=== PATIENT | female | born 1965 | race Caucasian/White ===

== ENCOUNTER 2017-01-15 09:16 | Observation (INO) | payer OTHER ==
[~2017-01-15] VITALS: Ht 165.1 cm; Wt 67.1 kg
[~2017-01-15 09:16] MED LIST: ADVAIR DISKU 11 UNIT INH; ALBUTEROL 3 ML3 ML INH; ALBUTEROL0.09 MG/A1 INH; AZITHROMYCIN250 M1 PO; BACTRIM DS 8001 TAB PO; BACTRIM DS TAB1 EACH PO; BENADRYL ALLERG25 MG PO; CEFTIN500 MG PO; CLEOCIN HCL300 MG PO; COZAAR50 M1 PO; CRESTOR20 M2 PO; DOXYCYCLINE MO100 MG PO; FLEXERIL10 MG PO; HYDROCODONE/ACE1 TA1 PO; IOPHEN C-NR 10473 ML PO; KEFLEX500 MG PO; LANTUS SOL100 UNIT/1 SC; METFORMIN HCL500 M3 PO; MOBIC 15MG15 MG PO; NAPROSYN 500 M500 MG PO; NOVOLOG FL100 UNIT/1 SC; OXYCONTIN20 MG PO; PERCOCET 325 MG1 TA2 PO; PREDNISONE 20MG20 MG PO; PREDNISONE10 MG PO; ROBITUSSIN W/CO10 ML PO; TESSALON PERLE100 MG PO; TRAMADOL50 MG PO; ZITHROMAX Z PA250 MG PO; ZITHROMAX Z-PA250 M1 PO; ZITHROMAX Z-PA250 MG PO
--- NOTE | 2017-01-15 09:25 | NUR ---
SEEN BY DR. MULLER YEST. FOR ABCESS ON LEFT UPPER LEG. TOLD TO COME TO ED IF FEVER. FEVER LAST NIGHT 100.3. TOOK TYLENOL 650 MG 0700 THIS AM
--- NOTE | 2017-01-15 09:43 | NUR ---
PT STATES THAT SHE IS SCHEDULED FOR SURGERY SATURDAY WITH DR SORTO FOR ABCESS TO HER BUTTOCKS. PT WAS TOLD TO COME TO ER IF IT BECAME WORSE. PT COMPLAINS THAT SHE HAD FEVER LAST PM AND THAT ABCESS IS GETTING LARGER.
--- NOTE | 2017-01-15 10:11 | ED SKIN/ALLERGY COMPLAINT ---
History of Present Illness General Chief Complaint: Skin Rash/ Abcess Stated Complaint: SENT BY DR MULLER FOR EVAL OF ABCESS Source: patient, old records Exam Limitations: no limitations Vital Signs & Intake/Output Vital Signs & Intake/Output Vital Signs Date Time Temp Pulse Resp B/P B/P Pulse O2 O2 Flow FiO2 Mean Ox Delivery Rate 01/15 1638 98.5 110 18 131/72 97 Room Air Room Air 01/15 1256 98.0 111 20 142/79 98 Room Air 01/15 1142 98.9 109 22 139/78 94 Room Air 01/15 1041 99.8 94 20 157/88 96 Room Air 01/15 0921 98.8 121 20 129/75 96 Allergies Coded Allergies: moxifloxacin (Severe, HIVES, ITCHING, VOMITING, SOB 11/28/15) amoxicillin (Intermediate, RASH/HIVES 11/28/15) tetanus and diphtheria toxoids (TETANUS & DIPHTHERIA TOXOIDS) (Intermediate, SWELLING, REDNESS AT SITE 11/28/15) Triage Note: SEEN BY DR. MULLER YEST. FOR ABCESS ON LEFT UPPER LEG. TOLD TO COME TO ED IF FEVER. FEVER LAST NIGHT 100.3. TOOK TYLENOL 650 MG 0700 THIS AM Triage Nurses Notes Reviewed? yes HPI: This is a 51-year-old female with past medical history significant for insulin- dependent diabetes, asthma, hypercholesterolemia, who comes in for a chief complaint of abscess. Patient has had recurrent abscesses in her groin, chest, and thigh. She states that she saw Thao Leon MD yesterday in office for evaluation of a left inguinal abscess. Supposedly, she is scheduled for OR I&D on Saturday. Pt states that she was counseled by Dr. Thao Leon MD, that if she became febrile or acutely worsened then she should come to the ED. Patient states that she's had this abscess for the past 5-6 months but it was only 1 cm in size and was actively draining. However the past 3 days, she noted explosive growth, erythema, and tenderness in that same area. Currently she states she has difficulty ambulating. Normal bladder and bowel function. She was prescribed Bactrim by Thao Leon MD, took last dose yesterday. She does endorse a fever of 100.3 yesterday. She took a Tylenol 650 mg around 7 AM this morning. Given the fever, nausea and difficulty ambulating she came to ED. (ANGELIA STUBBS,[facility]) Reconcile Medications Albuterol Sulfate 2.5 MG/3 ML (0.083 %) VIAL.NEB 1 Vial INH/SAÚL Q4P PRN SHORTNESS OF BREATH (Reported) Albuterol Sulfate (Proair Hfa) 90 MCG HFA.AER.AD 2 PUF INH Q4-6 PRN PRN SHORTNESS OF BREATH (Reported) Clindamycin HCl (Cleocin HCl) 300 MG CAPSULE 1 CAP PO TID ABSCESS Fluticasone-Salmeterol (Advair 100-50 Diskus) 100 MCG-50 MCG/DOSE BLST.W.DEV 1 PUF INH BID ASTHMA (Reported) Insulin Aspart, Recombinant (Novolog Flexpen) (Unknown Strength) INSULN.PEN ( Unknown Dose) SC SEE SLIDING SCALE DIABETES (Reported) Insulin Glargine,Hum.rec.anlog (Lantus Solostar) 100 UNIT/ML (3 ML) INSULN.PEN 60 UNIT SC QPM DIABETES (Reported) Losartan Potassium (Cozaar) 50 MG TABLET 1 TAB PO DAILY BP (Reported) Metformin HCl 500 MG TABLET 1 TAB PO BID DIABETES (Reported) Oxycodone HCl/Acetaminophen (Percocet 5-325 MG Tablet) 5 MG-325 MG TABLET 1-2 TAB PO Q4-6H PRN PAIN Rosuvastatin Calcium (Crestor) 20 MG TABLET 1 TAB PO DAILY CHOLESTEROL ( Reported) Onset: Gradual Duration: week(s): (2) Timing: recent history Severity: moderate, severe Location: LEFT INNER THIGH Associated Symptoms: edema (RADHA STUBBS,CHAR) Past History Travel History Traveled to [place] past 21 day No Medical History Any Pertinent Medical History? see below for history Neurological: NONE EENT: NONE Cardiovascular: hypertension, hyperlipidemia Respiratory: asthma, pneumonia, bronchitis Gastrointestinal: small external and internal hemorrhoids Hepatic: NONE Renal: NONE Musculoskeletal: NONE Psychiatric: NONE Endocrine: DM BENIGN THYROID TUMOR Blood Disorders: NONE Cancer(s): NONE PIN PUSHER/Reproductive: PARTIAL HYSTRECTOMY History of MRSA: No History of VRE: No History of CDIFF: No Surgical History Surgical History: PARTIAL HYSTERECTOMY thyroidectomy Psychosocial History Who do you live with Family Services at Home None What is your primary language Kuwaiti Tobacco Use: Never used ETOH Use: denies use Illicit Drug Use: denies illicit drug use Family History Family History, If Any: MOTHER FH: hypertension Hx Contributory? No (MARLA GALAN MD) Review of Systems Review of Systems Constitutional: Reports: chills, fever, malaise. Denies: diaphoresis. EENTM: Reports: no symptoms. Respiratory: Denies: cough, short of breath. Cardiovascular: Reports: palpitations. Denies: chest pain. GI: Reports: no symptoms. Genitourinary: Reports: no symptoms. Musculoskeletal: Reports: muscle stiffness. Skin: Reports: erythema, lesions, lumps, rash. (MARLA GALAN MD) Review of Systems Neurological/Psychological: Reports: anxiety. Hematologic/Endocrine: Denies: bruising, bleeding. Immunologic/Allergic: Denies: splenectomy. (CHAR GARCIA MD) Physical Exam Physical Exam General Appearance: well developed/nourished, anxious, mild distress Head: atraumatic, normal appearance Eyes: Bilateral: normal appearance, PERRL, EOMI. Ears, Nose, Throat: normal pharynx, normal ENT inspection Neck: normal inspection, supple Respiratory: chest non-tender, no respiratory distress, quiet respiration, lungs clear Cardiovascular: tachycardia Gastrointestinal: normal bowel sounds, soft, non-tender Extremities: Pt has erythematous, 6-7cm hard lesion exetnding into her inguinal region to her left buttock. No crepitus noted. Skin: see above Skin Problem Location: lower extremities Skin Problem Character: abcess Diagram Chest, Abdomen, Back: 1) abscess (MARLA GALAN MD) Physical Exam Peripheral Pulses: 2+ radial (R), 2+ radial (L) Neurologic/Psych: no motor/sensory deficits, awake, alert, oriented x 3 (CHAR GARCIA MD) ED Sepsis Exam Date of Focused Sepsis Exam: 01/15/17 Time of Focused Sepsis Exam: 1139 Sepsis Cardiac Exam: Regular Rate/Rhythm Sepsis Resp Exam: CTA Sepsis Cap Refill Exam: <2 Sec Sepsis Peripheral Pulse Exam: Normal Sepsis Peripheral Pulse Location: Radial Sepsis Skin Color Exam: Normal for Ethnicity Skin Temp/Moisture Exam: Warm/Dry (CHAR GARCIA MD) Progress Differential Diagnosis: abscess/cellulitis Plan of Care: Orders Procedure Date/time Status Nothing by Mouth 01/15 L Complete Nothing by Mouth 01/15 D Active Add-on Test (ER Only) 01/15 1138 Active EKG 01/15 1000 Active BLOOD CULTURE 01/16 956 Active PARTIAL THROMBOPLASTIN TIME 01/16 956 Complete PROTHROMBIN TIME 01/16 956 Complete COMPREHENSIVE METABOLIC PANEL 01/16 956 Complete CBC WITHOUT DIFFERENTIAL 01/16 956 Complete TYPE & SCREEN (NOT X-MATCH) 01/16 956 Complete Current Medications Sig/Mikki Start time Last Medication Dose Stop Time Status Admin Insulin Human Regular 0 Q6 01/15 1200 AC (NovoLIN R) Acetaminophen 650 MG Q4P PRN 01/15 1015 AC (Tylenol) Laboratory Tests 01/15/17 1008: Anion Gap 9, Estimated GFR > 60, BUN/Creatinine Ratio 20.0, Glucose 316 H, Calcium 9.3, Total Bilirubin 0.7, AST 13 L, ALT 33, Alkaline Phosphatase 99, Total Protein 6.6, Albumin 3.6, Globulin 3.0, Albumin/Globulin Ratio 1.2, PT 12.2, INR 1.16, APTT 31, CBC w Diff NO MAN DIFF REQ, RBC 4.97, MCV 89.5, MCH 29.5, RDW 13.6, MPV 8.9, Gran % 79.2 H, Lymphocytes % 13.9 L, Monocytes % 5.1, Eosinophils % 1.5, Basophils % 0.3, Absolute Granulocytes 11.9 H, Absolute Lymphocytes 2.1, Absolute Monocytes 0.8 H, Absolute Eosinophils 0.2, Absolute Basophils 0.1, PUBS MCHC 33.0 Microbiology 01/15 1020 BLOOD: Blood Culture - RECD 01/15 1008 BLOOD: Blood Culture - RECD MESSAGE LEFT FOR DR LEON IN OR. 11:38 AM SURGICAL PA PAGED. 01/15/2017 12:09:10 PM Patient to go to the OR from the ED this afternoon. (RADHA STUBBS,CHAR) Comments: 10:14 AM called OR and left message for Dr. Lauren regarding status of patient. 11:50 WBC 15 and Surgical PA seeing patient for evaluation 12:06 Pt scheduled for OR this evenight around 5PM. May or may not admit patient after (ANGELIA STUBBS,MARLA) Diagnostic Imaging: Viewed by Me: CT Scan. Discussed w/RAD: CT Scan. Radiology Impression: PATIENT: RAHEEL SAINI PRESENT AGE: 51 PATIENT ACCOUNT NO: [id number] : 66 LOCATION: [facility] ORDERING PHYSICIAN: ELY SWENSON SERVICE DATE: 01/15/174611 EXAM TYPE : CAT - CT PELVIS WO IV CONTRAST EXAMINATION: CT PELVIS WITHOUT CONTRAST CLINICAL INFORMATION: Abscess in the left posteromedial side. Evaluate for tract infection in the left side of the pelvis and the buttocks. COMPARISON: CT dated 10/18/2011 TECHNIQUE: Helical scanning was performed with submillimeter collimation through the pelvis. Sagittal and coronal multiplanar 2-D reconstructions were obtained. DLP: 602.7 mGy-cm FINDINGS: Within the subcutaneous fat at the inferior margin of the left gluteal region deep to the inferior gluteal fold, there is a 2.9 x 4.3 x 3.3 cm complex fluid collection with marked surrounding inflammation in the subcutaneous fat and adjacent skin thickening. This is most compatible with an abscess. The subcutaneous edema extends deep to the depth of the superficial fascia and the inferior pubic ramus. No gas or deep fluid collections are identified. No significant fluid along the fascial planes. More mild subcutaneous edema is present along the right inferior gluteal cleft. No subcutaneous collections. Intrapelvic soft tissues are unremarkable. Intrapelvic portions of the: Small bowel are normal in caliber. No bowel wall thickening. No free fluid. Calcific atherosclerosis is present within the vasculature. No adenopathy. Osseous structures are unremarkable aside from mild degenerative arthritis in the hips and SI joints. No acute osseous abnormalities. IMPRESSION: A 4.3 cm abscess in the subcutaneous fat deep to the left inferior gluteal cleft posteromedially. Surrounding inflammatory changes remain within the surrounding subcutaneous fat without extension into the deep soft tissues of the pelvis or the fascial planes of the thigh. DICTATED BY: ETELVINA MOISE MD DATE/TIME DICTATED:01/15/171502 EDITOR & CO FOUNDER:LILLY DATE/TIME TRANSCRIBED:01/15/171502 CONFIDENTIAL, DO NOT COPY WITHOUT APPROPRIATE AUTHORIZATION. <Electronically signed in Other Vendor System> SIGNED BY: ETELVINA MOISE MD 01/15/17 0728 (CHAR GARCIA MD) Departure Departure Disposition: STILL A PATIENT Condition: Stable Clinical Impression Primary Impression: Abscess Referrals: SANDY STUBBS,SOFÍA HUFF (PCP/Family) Departure Forms: Customer Survey General Discharge Information OR/GI Note Spoke With: THAO LEON MD ED Treatment Decision: RAHEEL SAINI requires urgent operative management or an emergent procedure that cannot be performed in the Emergency Room setting. Transport To: [facility] (ANGELIA STUBBS,MARLA) Departure Time of Disposition: 1813 Prescriptions: Current Visit Scripts Oxycodone HCl/Acetaminophen (Percocet 5-325 MG Tablet) 1-2 TAB PO Q4-6H PRN PAIN #36 Clindamycin HCl (Cleocin HCl) 1 CAP PO TID #30 CAP OR/GI Note Spoke With: THAO LEON MD ED Treatment Decision: RAHEEL SAINI requires urgent operative management or an emergent procedure that cannot be performed in the Emergency Room setting. Transport To: [facility] Resident Co-Sign Statement Statement: ED Attending supervision documentation- [X] I saw and evaluated the patient. I have also reviewed all the pertinent lab results and diagnostic results. I agree with the findings and the plan of care as documented in the Resident's documentation. [X] I have reviewed the ED Record and agree with the Resident's documentation. [] Additions or exceptions (if any) to the Resident's note and plan are summarized below: [] (RADHA STUBBS,CHAR)
--- NOTE | 2017-01-15 10:31 | NUR ---
IV PLACED AND FLUIDS INFUSING AT THIS TIME. PT MEDICATED WITH IV PAIN MEDS FOR 10/10 PAIN.
--- NOTE | 2017-01-15 10:35 | NUR ---
ABX INFUSING DIRECTED
[2017-01-15 10:40] LABS: ABSOLUTE BASOPHIL COUNT 0.1 /CUMM (0.0-0.2); ABSOLUTE EOSINOPHIL COUNT 0.2 /CUMM (0.0-0.7); ABSOLUTE GRANULOCYTE CT 11.9 /CUMM (1.4-6.5); ABSOLUTE LYMPH COUNT 2.1 /CUMM (1.2-3.4); ABSOLUTE MONOCYTE COUNT 0.8 /CUMM (0.10-0.60); BASOPHIL % 0.3 % (0.0-2.0); EOSINOPHIL % 1.5 % (0-5); GRANULOCYTE % 79.2 % (42.2-75.2); HEMATOCRIT 44.5 % (37-47); MEAN CORPUSCULAR HGB 29.5 PG (27.0-31.0); MEAN CORPUSCULAR VOLUME 89.5 FL (81.0-99.0); MEAN PLATELET VOLUME 8.9 FL (7.4-10.4); PLATELET COUNT 235 /CUMM (130-400); RBC DISTRIBUTION WIDTH 13.6 % (11.5-14.5); RED BLOOD CELL CT 4.97 /CUMM (4.20-5.40)
[2017-01-15 10:55] LABS: PT 12.2 SEC (9.4-12.5); PTT 31 SEC (25-37)
[2017-01-15] MEDS ORDERED: ALBUTEROL2.5 MG/3 M INH/SOL (12:07)
[2017-01-15] MEDS ORDERED: PROAIR HFA8.5 GM INH (12:08)
[2017-01-15] MEDS ORDERED: ADVAIR 100-501 EACH INH (12:09)
--- NOTE | 2017-01-15 12:11 | NUR ---
DR. GARCIA IN ROOM TO DISCUSS POC
--- NOTE | 2017-01-15 12:30 | NUR ---
PT STATES PAIN HAS RETURNED MEDICATED WITH DILAUDID IV
--- NOTE | 2017-01-15 15:12 | NUR ---
PT CARE ASSUMED BY THIS RN AT THIS TIME. PLAN IS FOR PT TO GO TO THE OR, PT VERBALIZES UNDERSTANDING OF POC.
--- NOTE | 2017-01-15 15:18 | CT SCAN REPORT ---
EXAMINATION: CT PELVIS WITHOUT CONTRAST CLINICAL INFORMATION: Abscess in the left posteromedial side. Evaluate for tract infection in the left side of the pelvis and the buttocks. COMPARISON: CT dated 10/18/2011 TECHNIQUE: Helical scanning was performed with submillimeter collimation through the pelvis. Sagittal and coronal multiplanar 2-D reconstructions were obtained. DLP: 602.7 mGy-cm FINDINGS: Within the subcutaneous fat at the inferior margin of the left gluteal region deep to the inferior gluteal fold, there is a 2.9 x 4.3 x 3.3 cm complex fluid collection with marked surrounding inflammation in the subcutaneous fat and adjacent skin thickening. This is most compatible with an abscess. The subcutaneous edema extends deep to the depth of the superficial fascia and the inferior pubic ramus. No gas or deep fluid collections are identified. No significant fluid along the fascial planes. More mild subcutaneous edema is present along the right inferior gluteal cleft. No subcutaneous collections. Intrapelvic soft tissues are unremarkable. Intrapelvic portions of the: Small bowel are normal in caliber. No bowel wall thickening. No free fluid. Calcific atherosclerosis is present within the vasculature. No adenopathy. Osseous structures are unremarkable aside from mild degenerative arthritis in the hips and SI joints. No acute osseous abnormalities. IMPRESSION: A 4.3 cm abscess in the subcutaneous fat deep to the left inferior gluteal cleft posteromedially. Surrounding inflammatory changes remain within the surrounding subcutaneous fat without extension into the deep soft tissues of the pelvis or the fascial planes of the thigh.
--- NOTE | 2017-01-15 16:15 | NUR ---
PT AMBULATORY TO BATHROOM, INQUIRING ABOUT OR TIME, PER OR NURSE AINSLEY PT WILL GO IN ABOUT 2 HRS.
--- NOTE | 2017-01-15 19:37 | NUR ---
PT TO OR AT THIS TIME.
--- NOTE | 2017-01-15 22:50 | Admission Core Measures ---
Admission Lab Results I reviewed the following labs: Laboratory Tests 01/15 1008 Chemistry Sodium (137 - 145 mmol/L) 133 L Potassium (3.5 - 5.1 mmol/L) 4.6 Chloride (98 - 107 mmol/L) 97 L Carbon Dioxide (22 - 30 mmol/L) 27 Anion Gap (5 - 16) 9 BUN (7 - 17 mg/dL) 12 Creatinine (0.5 - 1.0 mg/dL) 0.6 Estimated GFR (>60 ml/min) > 60 BUN/Creatinine Ratio (7 - 25 %) 20.0 Glucose (65 - 99 mg/dL) 316 H Calcium (8.4 - 10.2 mg/dL) 9.3 Total Bilirubin (0.2 - 1.3 mg/dL) 0.7 AST (14 - 36 U/L) 13 L ALT (9 - 52 U/L) 33 Alkaline Phosphatase (<127 U/L) 99 Total Protein (6.3 - 8.2 g/dL) 6.6 Albumin (3.5 - 5.0 g/dL) 3.6 Globulin (1.9 - 4.2 gm/dL) 3.0 Albumin/Globulin Ratio (1.1 - 2.2 %) 1.2 Coagulation PT (9.4 - 12.5 SEC) 12.2 INR (0.90 - 1.19) 1.16 APTT (25 - 37 SEC) 31 Hematology CBC w Diff NO MAN DIFF REQ WBC (4.8 - 10.8 /CUMM) 15.0 H RBC (4.20 - 5.40 /CUMM) 4.97 Hgb (12.0 - 16.0 G/DL) 14.7 Hct (37 - 47 %) 44.5 MCV (81.0 - 99.0 FL) 89.5 MCH (27.0 - 31.0 PG) 29.5 RDW (11.5 - 14.5 %) 13.6 Plt Count (130 - 400 /CUMM) 235 MPV (7.4 - 10.4 FL) 8.9 Gran % (42.2 - 75.2 %) 79.2 H Lymphocytes % (20.5 - 51.1 %) 13.9 L Monocytes % (1.7 - 9.3 %) 5.1 Eosinophils % (0 - 5 %) 1.5 Basophils % (0.0 - 2.0 %) 0.3 Absolute Granulocytes (1.4 - 6.5 /CUMM) 11.9 H Absolute Lymphocytes (1.2 - 3.4 /CUMM) 2.1 Absolute Monocytes (0.10 - 0.60 /CUMM) 0.8 H Absolute Eosinophils (0.0 - 0.7 /CUMM) 0.2 Absolute Basophils (0.0 - 0.2 /CUMM) 0.1 PUBS MCHC (33.0 - 37.0 G/DL) 33.0 Admission Meds I reviewed the following Meds: Current Medications Sig/Mikki Start time Last Medication Dose Stop Time Status Admin Acetaminophen 650 MG Q4P PRN 01/15 1015 AC 01/15 (Tylenol) 2241 Insulin Human Regular 0 TIDAC/HS 01/16 0800 AC (NovoLIN R) Acute Coronary Syndrome Inclusion Criteria ACS Diagnosis No Inpatient Core Measures LDL Reminder: If No, please order W/I first 24hr of stay Congestive Heart Failure Inclusion Criteria CHF Diagnosis No Cerebrovascular accident Inclusion Criteria CVA/TIA Diagnosis No Inpatient Core Measures Bedside Swallow Eval Reminder: If BSE failed, place ST order Antithrombotic Reminder: Order Antithrombotic Medication by end of day 2 Antithrombotic Reminder: Document Reason Antithrombotic Not ordered by end of day 2 AFIB/Flutter Reminder: If Present, add to problem list AFIB/Flutter Reminder: Order Anticoag Medication for pts with AFIB/Flutter Atherosclerosis Reminder: If Present, add to problem list LDL Reminder: If No, please order W/I first 24hr of stay PT Order Reminder: If No, please order Venous thromboembolism Inpatient Core Measures VTE Risk Factors: Age > 40, Surgery No [facility] VTE prophylaxis d/t No contraindications No VTE Pharm Prophylaxis d/t No contraindications Inclusion Criteria - Per Current guidelines, there needs to be overlap - treatment for the first 5 days of Warfarin therapy. - Parenteral Anticoagulation (IV or SC) needs to be - given along with Warfarin therapy. VTE Diagnosis No VTE Type NONE VTE Confirmed by (Test) NONE Problem List As ranked by this Provider includes Assessment & Plan 1. Abscess HOME MEDS Home Med List Albuterol Sulfate 2.5 MG/3 ML (0.083 %) VIAL.NEB 1 Vial INH/SAÚL Q4P PRN SHORTNESS OF BREATH (Reported) Albuterol Sulfate (Proair Hfa) 90 MCG HFA.AER.AD 2 PUF INH Q4-6 PRN PRN SHORTNESS OF BREATH (Reported) Fluticasone-Salmeterol (Advair 100-50 Diskus) 100 MCG-50 MCG/DOSE BLST.W.DEV 1 PUF INH BID ASTHMA (Reported) Insulin Aspart, Recombinant (Novolog Flexpen) (Unknown Strength) INSULN.PEN ( Unknown Dose) SC SEE SLIDING SCALE DIABETES (Reported) Insulin Glargine,Hum.rec.anlog (Lantus Solostar) 100 UNIT/ML (3 ML) INSULN.PEN 60 UNIT SC QPM DIABETES (Reported) Losartan Potassium (Cozaar) 50 MG TABLET 1 TAB PO DAILY BP (Reported) Metformin HCl 500 MG TABLET 1 TAB PO BID DIABETES (Reported) Rosuvastatin Calcium (Crestor) 20 MG TABLET 1 TAB PO DAILY CHOLESTEROL ( Reported)
[2017-01-15 22:53] VITALS: BP 132/70
--- NOTE | 2017-01-15 23:20 | PN- General Surgery ---
Surgical Brief Attending Note Brief Attending Note: Seen yesterday in the office, can see that note copied into the chart, for an area of inflammation on the left side of the perineum, and given its appearance and her history of infections and diabetes we recommended prompt I&D in the office but she really did not want to undergo go the procedure with just local anesthetic which in my opinion was certainly doable and could be tolerated very well, so we bookedd her for the OR for later this week and I told what to watch for, because this is at risk for an abscess that can track deep and wide. Also overnight she felt worse and came to the ER where she was found to be tachycardic with leukocytosis glucose over 300 area was slightly larger but she remained hemodynamically stable and afebrile and a CT scan showed that it was relatively localized it was no gas but I measured it approximately a 5 cm area that needed to be opened up so we will bring her to the OR today for incision and drainage and possible debridement.
[2017-01-16 00:49] VITALS: BP 114/78
[2017-01-16 08:04] LABS: ABSOLUTE BASOPHIL COUNT 0 /CUMM (0.0-0.2); ABSOLUTE EOSINOPHIL COUNT 0.3 /CUMM (0.0-0.7); ABSOLUTE LYMPH COUNT 2.1 /CUMM (1.2-3.4); ABSOLUTE MONOCYTE COUNT 0.7 /CUMM (0.10-0.60); BASOPHIL % 0.4 % (0.0-2.0)
[2017-01-16 08:07] VITALS: BP 112/70
[2017-01-16 08:27] LABS: GRANULOCYTE % 66.3 % (42.2-75.2); MEAN CORPUSCULAR HGB 29.3 PG (27.0-31.0); MEAN CORPUSCULAR HGB CONC 32.8 G/DL (33.0-37.0); MEAN CORPUSCULAR VOLUME 89.3 FL (81.0-99.0); MEAN PLATELET VOLUME 9.4 FL (7.4-10.4); PLATELET COUNT 202 /CUMM (130-400); RBC DISTRIBUTION WIDTH 13.4 % (11.5-14.5); RED BLOOD CELL CT 4.07 /CUMM (4.20-5.40); WHITE BLOOD CELL COUNT 9.1 /CUMM (4.8-10.8)
[2017-01-16 08:39] LABS: HEMATOCRIT 36.3 % (37-47)
--- NOTE | 2017-01-16 08:46 | PN- General Surgery ---
Subjective Subjective: No acute post operative events reported. Patient denying all of the following: Chest pain, shortness of breath, difficulty breathing, nausea and vomitting. Is tolerating po. Pain controlled. Objective Vital Signs and I&Os Vital Signs Date Time Temp Pulse Resp B/P B/P Pulse O2 O2 Flow FiO2 Mean Ox Delivery Rate 01/16 807 98.3 90 18 112/70 95 Room Air 01/15 2253 98.6 101 18 132/70 98 Nasal 3.0L Cannula 01/15 1638 98.5 110 18 131/72 97 Room Air Room Air 01/15 1256 98.0 111 20 142/79 98 Room Air 01/15 1142 98.9 109 22 139/78 94 Room Air 01/15 1041 99.8 94 20 157/88 96 Room Air 01/15 0921 98.8 121 20 129/75 96 Intake & Output 01/16 1600 01/16 0800 01/16 0000 01/15 1600 01/15 0800 01/15 0000 Intake Total 600 0 Output Total 100 Balance 500 0 Intake, IV 600 Intake, Oral 0 Output, Urine 100 Patient 148 lb 148 lb Weight Weight Reported by Patient Measurement Method Physical Exam: General: Alert and oriented x3, no acute distress Cardiac: RRR, s1s2 Pulm: C T A bilaterally Abdomen: Non-tender, non-distended Extremities: Moves all extremties, distal sensation intact, skin warm and well perfused. Bilateral calves soft and non-tender. Surgical site: Dressing taken down, saturated with serosanguinous drainage. Packing backed out 1 inch. Area surrounding incision mildlly erythematous, tender to palpation. No excessive warmth, no purulence noted. Clean dry dressing reapplied. Assessment/Plan Assessment/Plan This is a 51 year old female with a PMH significant for diabetes and an abscess left perineal area, she is pod 1 s/p I&D -Inch packing out daily, daily dry dressing changes -Continue cleocin IV for now, will convert to po abx upon discharge -Follow up blood glucose this am -DC iv fluids now -OOB as tolerated -Diet as tolerated -Plan on dc home later today pending labs -Will d/w Dr. Aiken Core Measures/Miscellaneous Venous Thromboembolism VTE Risk Factors: Age > 40, Surgery VTE Contraindications: No Contraindications VTE Diagnosis: No VTE Type: NONE VTE Confirmed by (Test): NONE Beta Ritika Is Beta Ritika a Home Med? No Antibiotics Is Patient on Antibiotics? Yes If Yes: infection
[2017-01-16 09:24] VITALS: BP 112/70
[2017-01-16] MEDS ORDERED: PERCOCET 5-3251 EACH PO (10:14)
--- NOTE | 2017-01-16 10:23 | Patient Discharge Instructions ---
Discharge Instructions General Discharge Information You were seen/treated for: Abscess in left gluteal area You had these procedures: I&D left perineal/gluteal abscess Watch for these problems: Increasing pain despite the use of pain medication. Increasing redness, warmth, swelling, drainage. Fever greater than 101.5 Other wound care: remove packing 1 inch each day and trim the outermost part as you go along. By day 4, remove the packing in its entirety. Keep wound clean and dry. Special Instructions: Follow up with Dr. Aiken in one week Diet Continue normal diet: Yes Recommended Diet: Diabetic Activity Full Activity/No Limits: No Activity Self Limited: Yes Acute Coronary Syndrome Inclusion Criteria At DC or during hospital stay patient has or had the following: ACS DIAGNOSIS No Discharge Core Measures Meds if any: Prescribed or Continued at Discharge Meds if any: NOT Prescribed or Continued at Discharge Congestive Heart Failure Inclusion Criteria At DC or during hospital stay patient has or had the following: CHF DIAGNOSIS No Discharge Core Measures Meds if any: Prescribed or Continued at Discharge Meds if any: NOT Prescribed or Continued at Discharge Cerebrovascular accident Inclusion Criteria At DC or during hospital stay patient has or had the following: CVA/TIA Diagnosis No Discharge Core Measures Meds if any: Prescribed or Continued at Discharge Meds if any: NOT Prescribed or Continued at Discharge Venous thromboembolism Inclusion Criteria VTE Diagnosis No VTE Type NONE VTE Confirmed by (Test) NONE Discharge Core Measures - Per Current guidelines, there needs to be overlap - treatment for the first 5 days of Warfarin therapy. - If discharged on Warfarin prior to 5 days of - overlap therapy, the patient will need to be - assessed for post discharge needs including - *Post discharge parental anticoagulation - *Warfarin and/or parental anticoagulation education - *Follow up date to check INR post discharge At least 5 days overlap therapy as Inpatient No Meds if any: Prescribed or Continued at Discharge Note: Overlap Therapy is Warfarin and Anticoagulant Meds if any: NOT Prescribed or Continued at Discharge
[2017-01-16] MEDS ORDERED: CLEOCIN HCL300 M1 PO (11:38)
--- NOTE | 2017-01-19 18:13 | Operative Report ---
Operative/Inv Procedure Report Surgery Date: 01/15/17 Name of Procedure: Incision and drainage of left perineal abscess Pre-Operative Diagnosis: Left perineal abscess Post-Operative Diagnosis: Same Estimated Blood Loss: scant Surgeon/Surgeon Assistant: EDWARD STUBBS,THAO Benito Anesthesia: general endotracheal tube Operative/Procedure Note Note: After induction of general anesthesia timeouts and IV antibiotics patient was repositioned into lithotomy, the red and raised indurated area of her left perineum was clipped prepped and draped in usual sterile fashion, using the appearance of this area and also the deeper extent seen on the CT scan we aimed a vertical incision about 3 cm long first injected local anesthetic then made the incision with a 15 blade there was pus we cultured it because the deep subfascial to open up any tracking there really wasn't much but the cavity was larger than the incision, but did not affect the vulvar or the rectum or the bone, cautery was used for hemostasis we irrigated and then packed with iodoform gauze tape followed by fluffs and paper tape, EBL minimal lap and sponge counts correct wound expectancy infected, IV fluids crystalloid complications none patient tolerated the procedure well was extubated and returned to recovery room in satisfactory condition.
== END 2017-01-16 12:46 ==
LOC: ERH 09:16 → ER-OR 09:28 → PACUH 21:06 → 1NO 21:06 → ENRESERV 21:37 → 1NO 22:27 → ENPENDDIS 01-16 12:27 → 1NO 01-16 12:46
PROVIDERS: Emergency Medicine; Physician Assistant Surgical; ADMIT Surgery
DX: L02.215 Cutaneous abscess of perineum (principal); E11.9 Type 2 diabetes mellitus without complications; D72.829 Elevated white blood cell count, unspecified; J45.909 Unspecified asthma, uncomplicated
CPT/HCPCS: 6020; 87070; 87075; 87184; 36415; 82436; 87040; 87071; 87147; 93005; 93010; 96372; 96374; 96375; 96376; G0378; J1644; J1815; J2250; J3010; J3370; J3490

== ENCOUNTER 2017-12-07 10:55 | Emergency (ER) | payer OTHER ==
[~2017-12-07] VITALS: Ht 165.1 cm; Wt 67.1 kg
[~2017-12-07 10:55] MED LIST changes: +ADVAIR 100-501 EACH INH; +ALBUTEROL2.5 MG/3 M INH/SOL; +CARTRIDGE STAM1 EACH; +CLEOCIN HCL300 M1 PO; +COLACE100 M1 PO; +LEVOTHYROXINE100 MC1 PO; +PERCOCET 5-3251 EACH PO; +PROAIR HFA8.5 GM INH; +SPIRIVA18 MCG INH; +SYNTHROID100 MCG PO
--- NOTE | 2017-12-07 11:26 | ED GI/GU/ABDOMINAL COMPLAINT ---
History of Present Illness General Chief Complaint: General Adult Stated Complaint: VOMITING FEVER S/P SURGERY Source: patient, old records Exam Limitations: no limitations Vital Signs & Intake/Output Vital Signs & Intake/Output Vital Signs Date Time Temp Pulse Resp B/P B/P Pulse O2 O2 Flow FiO2 Mean Ox Delivery Rate 12/07 1640 98.6 94 18 126/60 93 Room Air 12/07 1409 98.5 96 18 117/62 95 Room Air 12/07 1254 99.1 102 18 114/63 97 Room Air Room Air 12/07 1117 99.3 119 18 163/73 97 Room Air Room Air Allergies Coded Allergies: moxifloxacin (Severe, HIVES, ITCHING, VOMITING, SOB 11/28/15) amoxicillin (Intermediate, RASH/HIVES 11/28/15) hydromorphone (From DILAUDID) (Intermediate, swelling, rash 07/26/17) tetanus and diphtheria toxoids (TETANUS & DIPHTHERIA TOXOIDS) (Intermediate, SWELLING, REDNESS AT SITE 11/28/15) Reconcile Medications Insulin Aspart (Novolog) (Unknown Strength) VIAL (Unknown Dose) SC TIDAC/HS DM (Reported) Insulin Glargine,Hum.rec.anlog (Lantus Solostar) 100 UNIT/ML (3 ML) INSULN.PEN 80 UNIT SC QPM DM (Reported) Levothyroxine Sodium 125 MCG TABLET 1 TAB PO DAILY THYROID (Reported) Nitrofurantoin Macrocrystal (Nitrofurantoin) 100 MG CAPSULE 1 CAP PO BID UTI (Reported) Tiotropium [place] (Spiriva) 18 MCG CAP.W.DEV 18 MCG INH DAILY ASTHMA/COPD ( Reported) Triage Note: 52 YEAR OLD FEMALE REPORTS ABCESS TO LEFT GROIN WAS LANCED BY DR. MULLER ON SATURDAY. PT REPORTS INCREASED PAIN, FEVER, AND DRAINAGE STARTING SATURDAY. PT STATES SHE TOOK 1,000 MG OF TYLENOL THIS MORNING AT 0800. PT IS AFEBRILE AT THIS TIME BUT IS TACHYCARDIC AT 119. DR. CONWAY TO BEDSIDE FOR EVAL. Triage Nurses Notes Reviewed? yes ? N Is pt currently ? No HPI: 52F PMH HTN, HLD, IDDM, had a left inner thigh abscess drained by Dr. Aiken on 12/05/[address], not on antibiotics, presents with 2 days of persistent fevers to 102 measured at home with significant pain at the abscess site. She reports nausea, decreased appetite, and malaise. She denies rigors, vomiting, chest pain, SOB, abdominal pain, diarrhea, constipation, dysuria. No discharge has been noted from the area. Past History Travel History Traveled to [place] past 21 day No Medical History Any Pertinent Medical History? 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 No Review of Systems Review of Systems Constitutional: Reports: no symptoms. EENTM: Reports: no symptoms. Respiratory: Reports: no symptoms. Cardiovascular: Reports: no symptoms. GI: Reports: no symptoms. Genitourinary: Reports: no symptoms. Musculoskeletal: Reports: no symptoms. Skin: Reports: no symptoms. Neurological/Psychological: Reports: no symptoms. Hematologic/Endocrine: Reports: no symptoms. Immunologic/Allergic: Reports: no symptoms. All Other Systems: Reviewed and Negative Physical Exam Physical Exam General Appearance: well developed/nourished, mild distress Head: atraumatic, normal appearance Eyes: Bilateral: normal appearance. Ears, Nose, Throat, Mouth: hearing grossly normal, moist mucous membrane Neck: normal inspection, supple Respiratory: normal breath sounds, chest non-tender, no respiratory distress Cardiovascular: regular rate/rhythm Gastrointestinal: soft, non-tender Rectal: deferred Back: normal inspection, normal range of motion Extremities: normal range of motion Neurologic/Psych: awake, alert, oriented x 3, normal mood/affect Skin: 2cm drained abscess on left inner though with mild surrounding erythema, significant tenderness, no discharge, no fluctuace, negative inguinal lymph nodes Core Measures ACS in differential dx? No Sepsis Present: No Sepsis Focused Exam Completed? No Progress Differential Diagnosis: AAA, AMI, appendicitis, biliary colic, bowel obstruction , colon cancer, cholecystitis, diverticulitis, ectopic , endometritis, esophageal varices, gastritis, hepatitis, hernia, hemorrhoids, ischemic bowel, inflamm bowel dis, intrauterine , kidney stone, Mayra-Kyle tear, ovarian cyst, ovarian torsion, pancreatitis, PID/cervicitis, peptic ulcer, PUD/ GERD, perforated viscous, SBO, threatened AB, UTI/pyelo Plan of Care: Orders Procedure Date/time Status CULTURE,URINE 12/07 1252 Active URINALYSIS 12/07 125 Complete BLOOD CULTURE 12/07 1124 Active COMPREHENSIVE METABOLIC PANEL 12/07 1124 Complete CBC WITHOUT DIFFERENTIAL 12/07 1124 Complete Laboratory Tests 12/07/17 1258: Urine Color ANNALISE, Urine Clarity CLEAR, Urine pH 6.0, Ur Specific [place] >= 1.030, Urine Protein >=300 H, Urine Ketones 15 H, Urine Nitrite NEG, Urine Bilirubin NEG, Urine Urobilinogen 0.2, Ur Leukocyte Esterase NEG, Ur Microscopic SEDIMENT EXAMINED, Urine RBC 3-5, Urine WBC 10-15 H, Ur Epithelial Cells MANY H, Urine Bacteria MOD H, Hyaline Casts RARE H, Granular Casts RARE H, Urine Mucus RARE, Micro UA Comment MORE INFO: H, Urine Hemoglobin SMALL H, Urine Glucose 100 H 12/07/17 1145: Anion Gap 11, Estimated GFR > 60, BUN/Creatinine Ratio 33.3 H, Glucose 272 H, Calcium 8.8, Total Bilirubin 0.7, AST 14, ALT 21, Alkaline Phosphatase 90, Total Protein 6.3, Albumin 3.4 L, Globulin 2.9, Albumin/Globulin Ratio 1.2, CBC w Diff MAN DIFF ORDERED, RBC 5.13, MCV 89.4, MCH 29.8, MCHC 33.4, RDW 13.0, MPV 9.4, Gran % 88.6 H, Lymphocytes % 3.8 L, Monocytes % 5.2, Eosinophils % 2.3, Basophils % 0.1, Absolute Granulocytes 8.8 H, Absolute Lymphocytes 0.4 L, Absolute Monocytes 0.5, Absolute Eosinophils 0.2, Absolute Basophils 0, Platelet Estimate VERIFIED BY SMEAR, Normocytic RBCs VERIFIED, Normochromic RBCs VERIFIED Microbiology 12/07 134 URINE ROUT: Urine Culture - RECD 12/07 134 BLOOD: Blood Culture - RECD 12/07 1145 BLOOD: Blood Culture - RECD Per surgery her symptoms are not related to the drained abscess. Patient has remained afebrile here. SHe feels much better and back to baseline and wishes to go home. I advised the patient to come in as observation for monitoring overnight, but the patient refused. Risks were explained, patient was able to verbalize them, and understands. She will follow up with her surgeon and PCP, and return to ED if she feels worse. Diagnostic Imaging: Viewed by Me: CT Scan. Discussed w/RAD: CT Scan. Radiology Impression: PATIENT: RAHEEL SAINI PRESENT AGE: 52 PATIENT ACCOUNT NO: [id number] : 66 LOCATION: [facility] ORDERING PHYSICIAN: Ciara Conway MD SERVICE DATE: 12/07/17 EXAM TYPE : CAT - CT ABD & PELVIS W IV CONTRAST EXAMINATION: CT ABDOMEN AND PELVIS WITH CONTRAST CLINICAL INFORMATION: Rule out pyelonephritis. Left leg infection, abscess. COMPARISON: 10/19/2011 TECHNIQUE: Multidetector volumetric imaging was performed of the abdomen and pelvis following IV administration of 90 mL of Optiray 320 intravenous contrast. Sagittal and coronal reformatted images were obtained on the technologist's workstation. DLP: 356.99 mGy-cm FINDINGS: LUNG BASES: Mild left basilar atelectasis. Liver: Diffuse low-attenuation of the liver, suggesting fatty infiltration. No focal hepatic lesion or biliary ductal dilatation is present. The gallbladder is unremarkable with no evidence of radiopaque gallstones, gallbladder wall thickening, or obvious pericholecystic inflammatory changes. PANCREAS: Unremarkable SPLEEN: Small wedge-shaped hypodensity in the superior aspect of the spleen, of indeterminate etiology, clearly seen in the prior noncontrast CT. This could reflect an infarct of indeterminate age. ADRENAL GLANDS: Unremarkable KIDNEYS AND URETERS: The kidneys are normal in size, shape, demonstrating normal enhancement.. No hydronephrosis, hydroureter, or calculi seen. No perinephric stranding. Small hypodensity in the interpolar left kidney, too small to characterize, possible cyst. BLADDER: Unremarkable GASTROINTESTINAL TRACT: The small and large bowel are of normal caliber. No evidence of chronic wall thickening or pericolonic inflammatory changes. The appendix is unremarkable. Stomach is nondistended limiting evaluation. ABDOMINAL WALL: No significant hernia is appreciated. LYMPH NODES: Normal. VASCULAR: Unremarkable. PELVIC VISCERA: Focus of tissue posterior to the bladder may reflect uterus. No adnexal mass is seen. No free fluid. OSSEOUS STRUCTURES: No evidence of acute osseous abnormality. The area of previously noted abscess the left gluteal region is not included in the [id number]. IMPRESSION: 1. Hepatic steatosis. 2. No evidence of hydronephrosis or radiopaque calculi. Normal enhancement of bilateral kidneys. Small subcentimeter lesion left kidney, too small to characterize, probable cyst. 3. Small peripheral hypodensity in the superior spleen, nonspecific, may reflect infarct. 4. No acute findings are otherwise identified. DICTATED BY: Praveen Ortiz MD DATE/ TIME DICTATED:12/07/171531 CASINO ENFORCEMENT AGENT:LILLY DATE/TIME TRANSCRIBED: 12/07/171531 Initial ED EKG: none Departure Departure Disposition: HOME OR SELF CARE Condition: Stable Clinical Impression Primary Impression: UTI (urinary tract infection) Secondary Impressions: Uncontrolled diabetes mellitus Referrals: Tara STUBBS,Kyle De Anda (PCP/Family) Additional Instructions: Follow up with your surgeon and PCP. Return to ER if new or worsening symptoms. Departure Forms: Customer Survey General Discharge Information Prescriptions: Current Visit Scripts Sulfamethoxazole/Trimethoprim (Bactrim Ds Tablet) 1 TAB PO BID #14 TAB
[2017-12-07 11:59] LABS: ABSOLUTE BASOPHIL COUNT 0 /CUMM (0.0-0.2); ABSOLUTE EOSINOPHIL COUNT 0.2 /CUMM (0.0-0.7); ABSOLUTE GRANULOCYTE CT 8.8 /CUMM (1.4-6.5); ABSOLUTE LYMPH COUNT 0.4 /CUMM (1.2-3.4); ABSOLUTE MONOCYTE COUNT 0.5 /CUMM (0.10-0.60); BASOPHIL % 0.1 % (0.0-2.0); EOSINOPHIL % 2.3 % (0-5); GRANULOCYTE % 88.6 % (42.2-75.2); MEAN CORPUSCULAR HGB 29.8 PG (27.0-31.0); MEAN CORPUSCULAR HGB CONC 33.4 G/DL (33.0-37.0); MEAN PLATELET VOLUME 9.4 FL (7.4-10.4); PLATELET COUNT 218 /CUMM (130-400); RED BLOOD CELL CT 5.13 /CUMM (4.20-5.40); WHITE BLOOD CELL COUNT 9.9 /CUMM (4.8-10.8)
[2017-12-07 12:04] LABS: HEMATOCRIT 45.9 % (37-47); MEAN CORPUSCULAR VOLUME 89.4 FL (81.0-99.0)
--- NOTE | 2017-12-07 13:10 | PN- General Surgery ---
Surgical Brief Attending Note Brief Attending Note: Patient seen. s/o incision and drainage inguinal hidradenitis abscess. called me with c/o nausea/vomiting and fevers. denies abd pain. exam shows resolving abscess without residual infection. no surgical concerns. consider uti as alternate diagnosis. no packing required. f/u as arranged with Dr. Aiken.
--- NOTE | 2017-12-07 16:06 | CT SCAN REPORT ---
EXAMINATION: CT ABDOMEN AND PELVIS WITH CONTRAST CLINICAL INFORMATION: Rule out pyelonephritis. Left leg infection, abscess. COMPARISON: 10/19/2011 TECHNIQUE: Multidetector volumetric imaging was performed of the abdomen and pelvis following IV administration of 90 mL of Optiray 320 intravenous contrast. Sagittal and coronal reformatted images were obtained on the technologist's workstation. DLP: 356.99 mGy-cm FINDINGS: LUNG BASES: Mild left basilar atelectasis. Liver: Diffuse low-attenuation of the liver, suggesting fatty infiltration. No focal hepatic lesion or biliary ductal dilatation is present. The gallbladder is unremarkable with no evidence of radiopaque gallstones, gallbladder wall thickening, or obvious pericholecystic inflammatory changes. PANCREAS: Unremarkable SPLEEN: Small wedge-shaped hypodensity in the superior aspect of the spleen, of indeterminate etiology, clearly seen in the prior noncontrast CT. This could reflect an infarct of indeterminate age. ADRENAL GLANDS: Unremarkable KIDNEYS AND URETERS: The kidneys are normal in size, shape, demonstrating normal enhancement.. No hydronephrosis, hydroureter, or calculi seen. No perinephric stranding. Small hypodensity in the interpolar left kidney, too small to characterize, possible cyst. BLADDER: Unremarkable GASTROINTESTINAL TRACT: The small and large bowel are of normal caliber. No evidence of chronic wall thickening or pericolonic inflammatory changes. The appendix is unremarkable. Stomach is nondistended limiting evaluation. ABDOMINAL WALL: No significant hernia is appreciated. LYMPH NODES: Normal. VASCULAR: Unremarkable. PELVIC VISCERA: Focus of tissue posterior to the bladder may reflect uterus. No adnexal mass is seen. No free fluid. OSSEOUS STRUCTURES: No evidence of acute osseous abnormality. The area of previously noted abscess the left gluteal region is not included in the [id number]. IMPRESSION: 1. Hepatic steatosis. 2. No evidence of hydronephrosis or radiopaque calculi. Normal enhancement of bilateral kidneys. Small subcentimeter lesion left kidney, too small to characterize, probable cyst. 3. Small peripheral hypodensity in the superior spleen, nonspecific, may reflect infarct. 4. No acute findings are otherwise identified.
[2017-12-07] MEDS ORDERED: NOVOLOG100 UNIT/2 SC (16:33)
[2017-12-07] MEDS ORDERED: LANTUS SOL100 UNIT/1 SC (16:33)
[2017-12-07] MEDS ORDERED: LEVOTHYROXINE125 MCG PO (16:34)
[2017-12-07] MEDS ORDERED: NITROFURANTOIN100 M5 PO (16:35)
[2017-12-07 16:40] VITALS: BP 126/60
[2017-12-07] MEDS ORDERED: BACTRIM DS TAB1 EACH PO (16:42)
== END 2017-12-07 17:13 ==
LOC: ERH 10:55
PROVIDERS: Internal Medicine
DX: N39.0 Urinary tract infection, site not specified (principal); E11.9 Type 2 diabetes mellitus without complications
CPT/HCPCS: 74177; 81001; 87040; 87086; J3101

== ENCOUNTER → 2017-12-17 | Day surgery (SDC) | payer OTHER ==
[~2017-12-17] VITALS: Ht 165.1 cm; Wt 67.1 kg
[~2017-12-17] MED LIST changes: +LEVOTHYROXINE125 MCG PO; +NITROFURANTOIN100 M5 PO; +NOVOLOG100 UNIT/2 SC
[2017-12-17 11:52] LABS: ABSOLUTE BASOPHIL COUNT 0.1 /CUMM (0.0-0.2); ABSOLUTE EOSINOPHIL COUNT 1.2 /CUMM (0.0-0.7); ABSOLUTE LYMPH COUNT 4.4 /CUMM (1.2-3.4); ABSOLUTE MONOCYTE COUNT 0.7 /CUMM (0.10-0.60); BASOPHIL % 0.9 % (0.0-2.0); GRANULOCYTE % 52.1 % (42.2-75.2); HEMATOCRIT 43.7 % (37-47); MEAN CORPUSCULAR HGB CONC 33.2 G/DL (33.0-37.0); MEAN CORPUSCULAR VOLUME 90.2 FL (81.0-99.0); PLATELET COUNT 337 /CUMM (130-400); RBC DISTRIBUTION WIDTH 13.5 % (11.5-14.5); RED BLOOD CELL CT 4.84 /CUMM (4.20-5.40); WHITE BLOOD CELL COUNT 13.5 /CUMM (4.8-10.8)
--- NOTE | 2017-12-18 19:20 | Operative Report ---
Operative/Inv Procedure Report Surgery Date: 12/17/17 Name of Procedure: #1 excision of infected hidradenitis left para-vulvar area #2 excision of epidermoid cyst on mons 2 cm diameter, with intermediate complexity closure, 2.5 cm Pre-Operative Diagnosis: Left perineal hidradenitis with infection Epidermoid cyst mons Post-Operative Diagnosis: Same Estimated Blood Loss: scant Surgeon/Automotive Upholsterer: Attila STUBBS,Dest[place] Benito Anesthesia: general endotracheal tube Operative/Procedure Note Note: Patient was positioned supine in her groin and mons and upper thighs were prepped and draped in the usual sterile fashion we approached the perineal lesion first this has been recently I&Ded was a little edematous but definitely less erythematous I injected local anesthetic both superficially and deep and excised this incision, 2 cm long, taking the deeper tissues as well using normal yellow fat as a border there was scarring here. And it did track laterally which was dimpling the skin, so I made a second counterincision laterally about a centimeter long, checked for hemostasis with cautery and then packed both areas with a strip of iodoform gauze tape half inch did not close either incision and covered it with gauze and tape. Then we turned our attention to the mons there was an enlarged epidermoid cyst with multiple sinuses we injected local anesthetic and aimed an elliptical incision encompassing the sinuses excised it sharply with a knife superficially cautery deep removed in one piece measured 2 cm diameter used cautery for hemostasis and reapproximated in layers, 2-1/2 cm long, using interrupted 3-0 Vicryl sutures subdermally and a running 4- 0 nylon for the skin itself followed by bacitracin Telfa and Tegaderm. EBL minimal lap and sponge counts correct wound expectancy clean contaminated on one and infected on the other, IV fluids crystalloid complications none patient tolerated the procedure well was extubated and returned to recovery room in satisfactory condition.
== END ==
LOC: STS 07:00
PROVIDERS: Surgery
DX: L72.0 Epidermal cyst (principal); L02.219 Cutaneous abscess of trunk, unspecified; E11.9 Type 2 diabetes mellitus without complications; Z79.4 Long term (current) use of insulin; E07.9 Disorder of thyroid, unspecified; J45.909 Unspecified asthma, uncomplicated; Z87.891 Personal history of nicotine dependence; K21.9 Gastro-esophageal reflux disease without esophagitis
CPT/HCPCS: 36415; 93005; 93010; J2250

== ENCOUNTER 2018-02-21 19:05 | Inpatient (IN) | payer OTHER ==
[~2018-02-21] VITALS: Ht 165.1 cm; Wt 67.1 kg
[2018-02-21 20:10] LABS: ABSOLUTE BASOPHIL COUNT 0 /CUMM (0.0-0.2); ABSOLUTE EOSINOPHIL COUNT 0.3 /CUMM (0.0-0.7); ABSOLUTE GRANULOCYTE CT 12.9 /CUMM (1.4-6.5); ABSOLUTE LYMPH COUNT 2.7 /CUMM (1.2-3.4); ABSOLUTE MONOCYTE COUNT 0.6 /CUMM (0.10-0.60); BASOPHIL % 0.2 % (0.0-2.0); EOSINOPHIL % 1.9 % (0-5); GRANULOCYTE % 77.8 % (42.2-75.2); HEMATOCRIT 42.7 % (37-47); MEAN CORPUSCULAR HGB 30.2 PG (27.0-31.0); MEAN CORPUSCULAR HGB CONC 33.6 G/DL (33.0-37.0); MEAN PLATELET VOLUME 9.2 FL (7.4-10.4); PLATELET COUNT 320 /CUMM (130-400); RBC DISTRIBUTION WIDTH 13.3 % (11.5-14.5); RED BLOOD CELL CT 4.75 /CUMM (4.20-5.40); WHITE BLOOD CELL COUNT 16.6 /CUMM (4.8-10.8)
--- NOTE | 2018-02-21 20:15 | ED GENERAL ADULT ---
History of Present Illness General Chief Complaint: General Adult Stated Complaint: LEFT FOOT "LOCKED ON ME", PNEUMONIA PER MD Source: patient Exam Limitations: no limitations Vital Signs & Intake/Output Vital Signs & Intake/Output Vital Signs Date Time Temp Pulse Resp B/P B/P Pulse O2 O2 Flow FiO2 Mean Ox Delivery Rate 02/21 2154 98.0 84 20 140/70 95 Room Air 02/21 2048 93 02/21 1916 100.3 117 18 153/75 94 Room Air ED Intake and Output 02/22 0000 02/21 1200 Intake Total Output Total Balance Patient 148 lb Weight Weight Reported by Patient Measurement Method Allergies Coded Allergies: moxifloxacin (Severe, HIVES, ITCHING, VOMITING, SOB 11/28/15) amoxicillin (Intermediate, RASH/HIVES 11/28/15) hydromorphone (From DILAUDID) (Intermediate, swelling, rash 07/26/17) tetanus and diphtheria toxoids (TETANUS & DIPHTHERIA TOXOIDS) (Intermediate, SWELLING, REDNESS AT SITE 11/28/15) Reconcile Medications Insulin Aspart (Novolog) (Unknown Strength) VIAL (Unknown Dose) SC TIDAC/HS DM (Reported) Insulin Glargine,Hum.rec.anlog (Lantus Solostar) 100 UNIT/ML (3 ML) INSULN.PEN 80 UNIT SC QPM DM (Reported) Levothyroxine Sodium 125 MCG TABLET 1 TAB PO DAILY THYROID (Reported) Nitrofurantoin Macrocrystal (Nitrofurantoin) 100 MG CAPSULE 1 CAP PO BID UTI (Reported) Sulfamethoxazole/Trimethoprim (Bactrim Ds Tablet) 800 MG-160 MG TABLET 1 TAB PO BID UTI Tiotropium [place] (Spiriva) 18 MCG CAP.W.DEV 18 MCG INH DAILY ASTHMA/COPD ( Reported) Triage Note: PT FROM HOME C/O COUGH/ LEFT FOOT. PT STATES THAT 1WEEK PRIOR SHE WAS DX WITH PNEUMONIA PER PCP. PT FINISHED ZPAK AND CURRENTLY IS STILL ON PREDNISONE. PT HAS A PRODUCTIVE COUGH WITH A YELLOW SPUTUM. PT FEBRILE IN TRIAGE 100.3, 94% 02 ON RA, HR 117. 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 yes Onset: Gradual Duration: week(s): Timing: recent history Injury Environment: home Severity: moderate HPI: 52yo female with hx of COPD, HTN, PNA presents to ED complaining of "worsening pneumonia". Patient saw her primary care doctor last week and was started on a Z-Nolan for right lower lobe pneumonia. Patient states that despite azithromycin and prednisone she is still having worsening upper respiratory tract symptoms. She reports cough productive of yellow/green sputum, dyspnea worse with exertion , fevers, chills, body aches. Patient reports chest pain with coughing. Patient denies sick contacts, abdominal pain, nausea, vomiting, diarrhea. (Jerilyn Morris) Past History Travel History Traveled to [place] past 21 day No Medical History Any Pertinent Medical History? 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 No (Jerilyn Morris) Review of Systems Review of Systems Constitutional: Reports: see HPI. EENTM: Reports: no symptoms. Respiratory: Reports: see HPI. Cardiovascular: Reports: no symptoms. GI: Reports: no symptoms. Genitourinary: Reports: no symptoms. Musculoskeletal: Reports: no symptoms. Skin: Reports: no symptoms. Neurological/Psychological: Reports: no symptoms. Hematologic/Endocrine: Reports: no symptoms. Immunologic/Allergic: Reports: no symptoms. All Other Systems: Reviewed and Negative (Jerilyn Morris) Physical Exam Physical Exam General Appearance: well developed/nourished, no apparent distress, alert, awake Head: atraumatic, normal appearance Eyes: Bilateral: normal appearance. Ears, Nose, Throat: hearing grossly normal Neck: normal inspection, supple, full range of motion Respiratory: no respiratory distress, diffuse coarse breath sounds bilaterally Cardiovascular: normal peripheral pulses, tachycardia Peripheral Pulses: 2+ radial (R), 2+ radial (L) Gastrointestinal: normal bowel sounds, soft, non-tender, no organomegaly Back: normal inspection, normal range of motion Extremities: normal inspection, normal range of motion Neurologic/Psych: awake, alert, oriented x 3 Skin: intact, normal color, warm/dry Core Measures ACS in differential dx? Yes CVA/TIA Diagnosis: No Sepsis Present: No Sepsis Focused Exam Completed? No (Diana SWENSON,Jerilyn Mccarthy) Progress Differential Diagnoses I considered the following diagnoses in my evaluation of the patient: [Pneumonia , pulmonary embolism, acute coronary syndrome, bronchitis, COPD exacerbation] Diagnostic Imaging: Viewed by Me: Radiology Read. Discussed w/RAD: Radiology Read. Radiology Impression: PATIENT: RAHEEL SAINI PRESENT AGE: 52 PATIENT ACCOUNT NO: [id number] : 66 LOCATION: [facility] ORDERING PHYSICIAN: Jerilyn SWENSON SERVICE DATE: 02/21/18 EXAM TYPE: RAD - XRY-FOOT COMPLETE, LEFT EXAMINATION: XR FOOT, LEFT CLINICAL INFORMATION: Fracture of left foot pain COMPARISON: None TECHNIQUE: AP, lateral, and oblique views of the left foot. FINDINGS: There is a moderate plantar calcaneal spur. There is a small posterior calcaneal spur. I do not see a fracture IMPRESSION: No fracture or acute abnormality DICTATED BY: Jordon Acevedo MD DATE/TIME DICTATED:02/21/182151 ENGINEER BYPRODUCT:LILLY DATE/TIME TRANSCRIBED:02/21/182151 CONFIDENTIAL, DO NOT COPY WITHOUT APPROPRIATE AUTHORIZATION. <Electronically signed in Other Vendor System> SIGNED BY: Jordon Acevedo MD 02/21/182156 CXR Impression: PATIENT: RAHEEL SAINI PRESENT AGE: 52 PATIENT ACCOUNT NO: [id number] : 67 LOCATION: [facility] ORDERING PHYSICIAN: Jerilyn SWENSON SERVICE DATE: 02/21/18 EXAM TYPE: RAD - XRY-CHEST XRAY, TWO VIEWS EXAMINATION: XR CHEST CLINICAL INFORMATION: Pneumonia effusion worsening symptoms COMPARISON: Prior chest x-ray October 2015 TECHNIQUE: 2 views of the chest were obtained. FINDINGS: There is a focal linear opacity in the left lower lobe Lungs otherwise clear. Cardiac silhouette mediastinum pulmonary vascularity normal. Postsurgical changes in lower cervical spine IMPRESSION: Opacity in the left lower lobe. This could reflect atelectasis or evolving infiltrate\\E\\pneumonia. DICTATED BY: Jordon Acevedo MD DATE/TIME DICTATED:02/21/182135 ENGINEER BYPRODUCT:LILLY DATE/TIME TRANSCRIBED:2135 CONFIDENTIAL, DO NOT COPY WITHOUT APPROPRIATE AUTHORIZATION. < Electronically signed in Other Vendor System> SIGNED BY: Jordon Acevedo MD 02/21/182152 Initial ED EKG: SINUS TACHYCARDIA @108BPM, NONSPECIFIC ST CHANGES Prior EKG: unchanged (12/17/17) (Diana SWENSON,Jerilyn Mccarthy) Plan of Care: Orders Procedure Date/time Status Nothing by Mouth 02/22 B Active Saline Lock 02/21 2350 Active Misc Message 02/21 2350 Active ED Holding Orders 02/21 2350 Active Admit to inpatient 02/21 2350 Active Vital Signs 02/21 2350 Active Code Status 02/21 2350 Active Patient Data 02/21 2335 Active LACTIC ACID 02/21 1919 Complete LOWER RESPIRATORY CULTURE 02/21 1918 Active BLOOD CULTURE 02/21 1918 Active TROPONIN LEVEL 02/21 1918 Complete D-DIMER 02/21 1918 Complete COMPREHENSIVE METABOLIC PANEL 02/21 1918 Complete CBC WITHOUT DIFFERENTIAL 02/21 1918 Complete EKG 02/21 1918 Active Current Medications Sig/Mikki Start time Last Medication Dose Stop Time Status Admin Azithromycin 500 MG ONCE ONE 02/21 2345 AC (Zithromax) 02/22 0044 Sodium Chloride 250 ML (Normal Saline 0.9%) Laboratory Tests 02/21/18 2219: Lactic Acid Cancelled 02/21/18 1950: Lactic Acid 1.9 02/21/18 1950: Anion Gap 8, Estimated GFR > 60, BUN/Creatinine Ratio 18.3, Glucose 423 H, Calcium 9.1, Total Bilirubin 0.2, AST 19, ALT 23, Alkaline Phosphatase 114, Troponin I < 0.01, Total Protein 6.0 L, Albumin 3.0 L, Globulin 3.0, Albumin/ Globulin Ratio 1.0 L, D-Dimer High Sensitivty 225, CBC w Diff MAN DIFF ORDERED, RBC 4.75, MCV 90.0, MCH 30.2, MCHC 33.6, RDW 13.3, MPV 9.2, Gran % 77.8 H, Lymphocytes % 16.2 L, Monocytes % 3.9, Eosinophils % 1.9, Basophils % 0.2, Absolute Granulocytes 12.9 H, Segmented Neutrophils 81 H, Absolute Lymphocytes 2.7, Lymphocytes 10 L, Monocytes 5, Absolute Monocytes 0.6, Eosinophils 3, Absolute Eosinophils 0.3, Basophils 1, Absolute Basophils 0, Platelet Estimate VERIFIED BY SMEAR, Normocytic RBCs VERIFIED, Normochromic RBCs VERIFIED, Fld Total RBCs Counted 100 Microbiology 02/21 1950 BLOOD: Blood Culture - RECD 02/21 1949 BLOOD: Blood Culture - RECD 02/21 1918 LOWER RESP: Respiratory Culture - ORD 02/21 1918 LOWER RESP: Gram Stain - ORD Patient's chest x-ray shows left lower lobe pneumonia. The patient has leukocytosis of 16, arrives febrile and tachycardic. When patient ambulates she is very symptomatic with tachypnea and dyspnea. O2 saturation 95% with ambulation however heart rate 120s with ambulation. Patient has already been treated with azithromycin without improvement of her symptoms. Patient requires hospitalization for IV antibiotics, possible IV steroids, possible infectious disease consult, possible supplemental oxygen, respiratory therapy treatments. Dr. Hess agrees with this plan. Spoke with hospitalist Dr. Logan regarding general medicine admission. (Jerilyn Morris) (Jimena STUBBS,Lorenzo Ramirez) Departure Departure Disposition: STILL A PATIENT Condition: Stable Clinical Impression Primary Impression: Pneumonia Qualifiers: Pneumonia type: due to unspecified organism Laterality: left Lung location: unspecified part of lung Qualified Code: J18.9 - Pneumonia, unspecified organism Referrals: Tara STUBBS,Kyle De Anda (PCP/Family) Departure Forms: Customer Survey General Discharge Information Admission Note Spoke With: Oswaldo Logan MD Documentation of Exam: Documentation of any treatments & extenuating circumstances including Concerns Regarding Discharge (functional status, medication knowledge or non-compliance, living conditions, etc.) that warrant an admission rather than observation: [ Pneumonia with failed outpatient antibiotic therapy requiring IV antibiotics, leukocytosis requiring repeat labs, respiratory treatments, possible ID consult, patient is very symptomatic with ambulation, is unsafe for her to go home at this time.] (Jerilyn Morris) PA/AIRCRAFT RIVETER Co-Sign Statement Statement: ED Attending supervision documentation- [x] I saw and evaluated the patient. I have also reviewed all the pertinent lab results and diagnostic results. I agree with the findings and the plan of care as documented in the PA's/AIRCRAFT RIVETER's documentation. 02/21/18, 23:14... pt with pneumonia, failed outpatient treatment, tachypneic and breathless upon ambulation, merits 02 support, iv abx. [] I have reviewed the ED Record and agree with the PA's/AIRCRAFT RIVETER's documentation. [] Additions or exceptions (if any) to the PAs/AIRCRAFT RIVETER's note and plan are summarized below: [] (Jimena STUBBS,Lorenzo Ramirez) Critical Care Note Critical Care Note Critical Care Time: non-applicable (Diana SWENSON,Jerilyn Mccarthy)
--- NOTE | 2018-02-21 21:53 | RADIOLOGY REPORT ---
EXAMINATION: XR CHEST CLINICAL INFORMATION: Pneumonia effusion worsening symptoms COMPARISON: Prior chest x-ray October 2015 TECHNIQUE: 2 views of the chest were obtained. FINDINGS: There is a focal linear opacity in the left lower lobe Lungs otherwise clear. Cardiac silhouette mediastinum pulmonary vascularity normal. Postsurgical changes in lower cervical spine IMPRESSION: Opacity in the left lower lobe. This could reflect atelectasis or evolving infiltrate\E\pneumonia.
--- NOTE | 2018-02-21 21:57 | RADIOLOGY REPORT ---
EXAMINATION: XR FOOT, LEFT CLINICAL INFORMATION: Fracture of left foot pain COMPARISON: None TECHNIQUE: AP, lateral, and oblique views of the left foot. FINDINGS: There is a moderate plantar calcaneal spur. There is a small posterior calcaneal spur. I do not see a fracture IMPRESSION: No fracture or acute abnormality
--- NOTE | 2018-02-21 22:40 | History & Physical ---
General Information and HPI Allergies/Medications Allergies: Coded Allergies: moxifloxacin (Severe, HIVES, ITCHING, VOMITING, SOB 11/28/15) amoxicillin (Intermediate, RASH/HIVES 11/28/15) hydromorphone (From DILAUDID) (Intermediate, swelling, rash 07/26/17) tetanus and diphtheria toxoids (TETANUS & DIPHTHERIA TOXOIDS) (Intermediate, SWELLING, REDNESS AT SITE 11/28/15) Home Med list Insulin Aspart (Novolog) (Unknown Strength) VIAL (Unknown Dose) SC TIDAC/HS DM (Reported) Insulin Glargine,Hum.rec.anlog (Lantus Solostar) 100 UNIT/ML (3 ML) INSULN.PEN 80 UNIT SC QPM DM (Reported) Levothyroxine Sodium 125 MCG TABLET 1 TAB PO DAILY THYROID (Reported) Nitrofurantoin Macrocrystal (Nitrofurantoin) 100 MG CAPSULE 1 CAP PO BID UTI (Reported) Sulfamethoxazole/Trimethoprim (Bactrim Ds Tablet) 800 MG-160 MG TABLET 1 TAB PO BID UTI Tiotropium [place] (Spiriva) 18 MCG CAP.W.DEV 18 MCG INH DAILY ASTHMA/COPD ( Reported) Past History Travel History Traveled to [place] past 21 day No Medical History Neurological: NONE EENT: NONE Cardiovascular: hypertension, hyperlipidemia Respiratory: asthma, pneumonia, bronchitis Gastrointestinal: small external and internal hemorrhoids Hepatic: NONE Renal: NONE Musculoskeletal: NONE Psychiatric: NONE Endocrine: DM BENIGN THYROID TUMOR Blood Disorders: NONE Cancer(s): 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 Ambulation: independent Core Measures/Misc (05/26) Sepsis (View protocol) If YES complete Sepsis Event Note If YES complete Sepsis Event Note
[2018-02-22 02:01] VITALS: BP 134/68
--- NOTE | 2018-02-22 04:00 | History & Physical ---
[facility] 02[facility]22/18 0400: General Information and HPI MD Statement: I have seen and personally examined RAHEEL SAINI and documented this H&P. The patient is a 52 year old F who presented with a patient stated chief complaint of [sob]. Source of Information: patient, old records Exam Limitations: no limitations History of Present Illness: This is a 52-year-old female with past medical history significant for hypertension, COPD, hyperlipidemia, hemorrhoids, asthma, diabetes, thyroidectomy , who comes in for chief complaint of worsening cough, fever and chest tightness. She states that about a week and a half ago she noted onset of cough , fever and chills. MAXIMUM TEMPERATURE 102-103. She went to see her PCP did a chest x-ray which showed a right lower lobe pneumonia. At that time she was prescribed a Z-Nolan and 10 days of 20 mg steroids. She didn't really notice any change in her symptoms other than increasing cough and sputum production. She also notes a worsening chest tightness that is not exacerbated or relieved by any factors, non-radiating and not pleuritic in nature that is in the center of her sternum. She denies any recent travel or sick contacts. She states that she usually gets pneumonia, "about once a year." She states that even optimal yesterday that she was febrile. She doesn't cough, dyspnea on exertion, fevers, chills, chest pressure but denies any headache, nausea, vomiting, abdominal pain , skin rash, pharyngitis, coryza, hematuria or hematochezia. She does have significant smoking history until she quit about 5 years ago. Denies alcohol or IV drug abuse. She did have an epidermoid cyst of her mons and infected Hydra adenitis. Of all the exercise December 2017. She does have allergy to Avelox and amoxicillin. Amoxicillin allergy is rash and Avelox is throat closing in. She finished her oral steroids about 2 days prior to admission. Allergies/Medications Allergies: Coded Allergies: moxifloxacin (Severe, HIVES, ITCHING, VOMITING, SOB 11/28/15) amoxicillin (Intermediate, RASH/HIVES 11/28/15) hydromorphone (From DILAUDID) (Intermediate, swelling, rash 07/26/17) tetanus and diphtheria toxoids (TETANUS & DIPHTHERIA TOXOIDS) (Intermediate, SWELLING, REDNESS AT SITE 11/28/15) Home Med list Insulin Aspart (Novolog) (Unknown Strength) VIAL (Unknown Dose) SC TIDAC/HS DM (Reported) Insulin Glargine,Hum.rec.anlog (Lantus Solostar) 100 UNIT/ML (3 ML) INSULN.PEN 80 UNIT SC QPM DM (Reported) Levothyroxine Sodium 125 MCG TABLET 1 TAB PO DAILY THYROID (Reported) Tiotropium [address] (Spiriva) 18 MCG CAP.W.DEV 18 MCG INH DAILY ASTHMA/COPD ( Reported) Past History Travel History Traveled to [place] past 21 day No Medical History Neurological: NONE EENT: NONE Cardiovascular: hypertension, hyperlipidemia Respiratory: asthma, pneumonia, bronchitis Gastrointestinal: small external and internal hemorrhoids Hepatic: NONE Renal: NONE Musculoskeletal: NONE Psychiatric: NONE Endocrine: DM BENIGN THYROID TUMOR Blood Disorders: NONE Cancer(s): NONE 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 Ambulation: independent Review of Systems Review of Systems Constitutional: Reports: see HPI. Exam & Diagnostic Data Last 24 Hrs of Vital Signs/I&O Vital Signs Date Time Temp Pulse Resp B/P B/P Pulse O2 O2 Flow FiO2 Mean Ox Delivery Rate 02/22 0224 Room Air 02/22 0201 98.0 80 20 134/68 95 Room Air 02/22 0142 98.3 82 20 143/87 92 Room Air 02/22 0010 98.9 91 18 162/77 93 Room Air 02/21 2154 98.0 84 20 140/70 95 Room Air 02/21 2048 93 02/21 1916 100.3 117 18 153/75 94 Room Air Intake & Output 02/22 0800 02/22 0000 02/21 1600 Intake Total Output Total Balance Patient 67.132 kg 67.132 kg Weight Weight Reported by Patient Reported by Patient Measurement Method Physical Exam General Appearance Alert, Oriented X3, Cooperative, No Acute Distress Skin No Rashes HEENT Atraumatic, PERRLA, EOMI, Mucous Membr. moist/pink Neck Supple, No LAD Cardiovascular Regular Rate, Normal S1, Normal S2, No Murmurs Lungs some high pitched noises and dimisnished air movement in [place]. Lung bases, jay on the right have crackles. Abdomen Soft, No Tenderness Extremities No Edema, Normal Pulses Last 24 Hrs of Labs/Fernando: Laboratory Tests 02/21/182218: Lactic Acid Cancelled 02/21/181949: Lactic Acid 1.9 02/21/181949: Anion Gap 8, Estimated GFR > 60, BUN/Creatinine Ratio 18.3, Glucose 423 H, Calcium 9.1, Total Bilirubin 0.2, AST 19, ALT 23, Alkaline Phosphatase 114, Troponin I < 0.01, Total Protein 6.0 L, Albumin 3.0 L, Globulin 3.0, Albumin/ Globulin Ratio 1.0 L, D-Dimer High Sensitivty 225, CBC w Diff MAN DIFF ORDERED, RBC 4.75, MCV 90.0, MCH 30.2, MCHC 33.6, RDW 13.3, MPV 9.2, Gran % 77.8 H, Lymphocytes % 16.2 L, Monocytes % 3.9, Eosinophils % 1.9, Basophils % 0.2, Absolute Granulocytes 12.9 H, Segmented Neutrophils 81 H, Absolute Lymphocytes 2.7, Lymphocytes 10 L, Monocytes 5, Absolute Monocytes 0.6, Eosinophils 3, Absolute Eosinophils 0.3, Basophils 1, Absolute Basophils 0, Platelet Estimate VERIFIED BY SMEAR, Normocytic RBCs VERIFIED, Normochromic RBCs VERIFIED, Fld Total RBCs Counted 100 Microbiology 02/21 1950 BLOOD: Blood Culture - RECD 02/21 1949 BLOOD: Blood Culture - RECD 02/21 1918 LOWER RESP: Respiratory Culture - COLB 02/21 1918 LOWER RESP: Gram Stain - COLB Assessment/Plan Assessment: Assessment: This is a 52-year-old female past medical history significant for COPD, hypertension, hyperlipidemia, hemorrhoids, asthma, thyroidectomy, diabetes , who comes in for chief complaint of productive cough, fever and chest tightness. Imaging consistent w/ PNA. Her curb 65 score is 0 which places her at low risk category and might do well with PO antibiotics such as augmentin since she failed treatment with Azithromycin. At this time I'm not sure if the white count is a result of the by mouth steroids that she recently finished or is due to her infection. We will admit patient to the general medicine floor and treat for community acquired pneumonia. Vitals: 100.3, 117, 18, 153/75, 94. CBC shows white count 16.6. Negative d-dimer. Sodium 133, chloride 97. Glucose 423. Negative lactic acid. Plan: 1. Pneumonia: * Blood cultures * LRC * Legionella antigen * Strep antigen * Ceftriaxone * Azithromycin 2. Hyperglycemic: The glucose is 423 and she takes a large amount of insulin at home. Continuing with 30 units of Levemir this AM. If she continues to be hyperglycemic can titrate back to her home dose. * Fingerstick * Consistent carbohydrate diet 3. Hypothyroidism: * Continue levothyroxine 5. COPD/asthma: * TRC * Maintain sats over 92 * Continue inhalers As Ranked By This Provider Problem List: 1. Uncontrolled diabetes mellitus 2. S/P total thyroidectomy 3. Pneumonia Qualifiers Pneumonia type: due to unspecified organism Laterality: left Lung location: unspecified part of lung Qualified Code: J18.9 - Pneumonia, unspecified organism Core Measures/Misc (05/26) Acute Coronary Syndrome ACS Diagnosis: No Congestive Heart Failure Congestive Heart Failure Diagnosis No Cerebrovascular Accident CVA/TIA Diagnosis: No VTE (View Protocol) VTE Risk Factors Acute Medical Illness No Mechanical VTE Prophylaxis d/t N/A MechProphylax Ordered No VTE Pharm Prophylaxis d/t NA PharmProphylax ordered Sepsis (View protocol) Sepsis Present: No If YES complete Sepsis Event Note If YES complete Sepsis Event Note Oswaldo Logan 02/22/18 0636: Core Measures/Misc (05/26) Sepsis (View protocol) If YES complete Sepsis Event Note If YES complete Sepsis Event Note Attending MD Review Statement Attending Statement Attending MD Statement: examined this patient, discuss w/resident/PA/FAST FOODS WORKER, agreed w/resident/PA/FAST FOODS WORKER, reviewed EMR data (avail), reviewed images, amended to note Attending Assessment/Plan: CC: Worsening of cough, shortness of breath PMH: Insulin-dependent diabetes, hypothyroidism secondary to thyroidectomy, HTN, neuropathy Patient came to ER for persistent cough and expectoration. Her symptoms started approximately 1-1/2 week back with cough, greenish color sputum production, fever of 102 associated with chills. She followed up with primary care physician for these symptoms, chest x-ray was obtained and she had right-sided pneumonia. She was treated with azithromycin and a short course of prednisone. Even with this treatment she was not symptomatically better her cough was worsening along with shortness of breath so she came to ER. Patient denies any chest pain, chest tightness, palpitation, dizziness, blurry vision, double vision, abdominal pain, diarrhea or vomiting. She denies any choking or sick contacts or recent travels. She is compliant with her medications. After coming to ER if she has severe cramp in her left foot which resolved after pain medications. Vitals: Temperature 100.3, pulse 117, RR 18, blood pressure 153/75, saturating 94% on room air. On exam: A O 3, cooperative, no acute distress, neck supple, JVD normal, no lymphadenopathy, mucosa moist, no focal neurological deficit, no dependent edema , no obvious skin rashes or inflammation CVS: S1-S2, RRR. RS: Crackles and right base, rhonchi on left side. Abdomen: Soft, NT, ND, bowel sounds present. CXR: Opacity in the left lower lobe. This could reflect atelectasis or evolving infiltrate\\E\\pneumonia. Left foot x-ray: No fracture or acute abnormality Assessment and plan 52-year-old female with past medical history significant for DM, hypothyroidism, HTN presented in ER for persistent cough with a greenish color sputum production and worsening shortness of breath associated fevers chills not resolved even with antibiotic and prednisone treatment at home for last 7 days. She has crackles on the right side and mild rhonchi on left otherwise exam unremarkable, she had low-grade fever of 100.3. Labs showed the leukocytosis but this could be secondary to prednisone use, lactic acid 1.9, d-dimer negative. Chest x-ray confirms left lower lobe opacity suggestive of pneumonia. + Left lower lobe pneumonia + History of Insulin-dependent diabetes, hypothyroidism secondary to thyroidectomy, HTN, neuropathy - Admit to general medicine - IV azithromycin and ceftriaxone - TRC nebulization with albuterol and ipratropium scheduled and when necessary - Mucinex scheduled twice a day - Continue rest of the home medications : Levemir 30 units twice a day, sliding scale insulin, levothyroxine and Lyrica - Blood culture, sputum culture, strep and Legionella antigen - Adequate pain control - DVT prophylaxis
--- NOTE | 2018-02-22 06:37 | Admission Certification ---
Admission Certification Certification Statement - As attending physician, I certify that at the time of - admission, based on clinical presentation, severity of - symptoms, need for further diagnostic testing and - therapeutic interventions, and risk of adverse outcomes - without in-hospital treatment, in my clinical assessment, - this patient requires an acute hospital stay for a minimum - of two nights or longer. I have also considered psychsocial - factors such as support system, advanced age, financial - issues, cognitive issues, and failed out-patient treatments, - past re-admission history, safety of patient, and lack of - compliance as applicable. Specific rationale supporting this admission is: Pneumonia
[2018-02-22 06:54] VITALS: BP 122/68
[2018-02-22 09:41] LABS: ABSOLUTE BASOPHIL COUNT 0 /CUMM (0.0-0.2); ABSOLUTE EOSINOPHIL COUNT 0 /CUMM (0.0-0.7); ABSOLUTE GRANULOCYTE CT 14.7 /CUMM (1.4-6.5); ABSOLUTE LYMPH COUNT 1.1 /CUMM (1.2-3.4); ABSOLUTE MONOCYTE COUNT 0.2 /CUMM (0.10-0.60); BASOPHIL % 0 % (0.0-2.0); EOSINOPHIL % 0 % (0-5); HEMATOCRIT 42.6 % (37-47); MEAN CORPUSCULAR HGB 30.3 PG (27.0-31.0); MEAN CORPUSCULAR HGB CONC 33.5 G/DL (33.0-37.0); MEAN CORPUSCULAR VOLUME 90.5 FL (81.0-99.0); MEAN PLATELET VOLUME 9.4 FL (7.4-10.4); PLATELET COUNT 283 /CUMM (130-400); RBC DISTRIBUTION WIDTH 13.1 % (11.5-14.5); RED BLOOD CELL CT 4.71 /CUMM (4.20-5.40); WHITE BLOOD CELL COUNT 15.9 /CUMM (4.8-10.8)
[2018-02-22 10:29] LABS: GRANULOCYTE % 92.2 % (42.2-75.2)
--- NOTE | 2018-02-22 13:46 | PN- Gen Med ---
Assessment/Plan Medical Assessment: Impression 52 year old woman * LLL CAP * hx of asthma - treated by Dr. Peralta in [place] * hyperglycemia/DM * hypothyroidism Problem List: 1. Diabetes 2. Hyperglycemia 3. Asthma Plan: Plan -ceftriaxone/zithromax -f/u all cultures/sputum -endocrinology consultation -no need for prednisone at this time, just completed course -TRC/Nebs - Duonebs -can resume inhalers on an outpatient basis DVT prophylaxis at all times DVT/Prophylaxis: pharmacological Consulting Request: Consulting Specialty: Endocrinology Subjective Follow-up For: CAP Complaints: shortness of breath cough Review of Systems Constitutional: Reports: weakness. Denies: chills, diaphoresis, fever. EENTM: Denies: blurred vision, double vision, visual changes, eye pain. Cardiovascular: Denies: chest pain, edema, orthopena, palpitations, peripheral edema, syncope. Respiratory: Reports: cough, short of breath, sputum production. Gastrointestinal: Denies: abdominal pain, bloating, constipation, diarrhea, nausea. Genitourinary: Denies: dysuria. Musculoskeletal: Denies: back pain, muscle pain. Skin: Denies: rash. Neurological/Psychological: Denies: no symptoms. Objective Last 24 Hrs of Vital Signs/I&O Vital Signs Date Time Temp Pulse Resp B/P B/P Pulse O2 O2 Flow FiO2 Mean Ox Delivery Rate 02/22 0800 96 Room Air 02/22 0654 98.4 76 18 122/68 96 Room Air 02/22 0224 Room Air 02/22 0201 98.0 80 20 134/68 95 Room Air 02/22 0142 98.3 82 20 143/87 92 Room Air 02/22 0010 98.9 91 18 162/77 93 Room Air 02/21 2154 98.0 84 20 140/70 95 Room Air 02/21 2048 93 02/21 1916 100.3 117 18 153/75 94 Room Air Intake & Output 02/22 1600 16 0800 02/22 0000 Intake Total Output Total Balance Patient 148 lb 148 lb Weight Weight Reported by Patient Reported by Patient Measurement Method Physical Exam General Appearance: Alert, Oriented X3 Skin: No Rashes HEENT: EOMI, Mucous Membr. moist/pink Neck: Supple Cardiovascular: Regular Rate Lungs: b/l rhonchi Abdomen: Normal Bowel Sounds, Soft Neurological: Normal Speech Extremities: No Cyanosis, No Edema
--- NOTE | 2018-02-22 13:54 | Cons- Endocrinology ---
General Information and HPI Consulting Request Date of Consult: 02/22/18 Requested By: medical team Reason for Consult: management of uncontrolled diabetes type 2 Source of Information: patient Exam Limitations: no limitations History of Present Illness: 52-year-old female with past medical history significant for hypertension, COPD , hyperlipidemia, hemorrhoids, asthma, diabetes type 2, goiter s/p thyroidectomy and hypothyroidism, who was admitted for worsening cough, fever and chest tightness. At home, she was on Lantus 40 units twice a day, Novolog coverage before meals. She received Solumedrol 125 mg in ER. Her glucose level has been over 400. Allergies/Medications Allergies: Coded Allergies: moxifloxacin (Severe, HIVES, ITCHING, VOMITING, SOB 11/28/15) amoxicillin (Intermediate, RASH/HIVES 11/28/15) hydromorphone (From DILAUDID) (Intermediate, swelling, rash 07/26/17) tetanus and diphtheria toxoids (TETANUS & DIPHTHERIA TOXOIDS) (Intermediate, SWELLING, REDNESS AT SITE 11/28/15) Home Med List: Insulin Aspart (Novolog) (Unknown Strength) VIAL (Unknown Dose) SC TIDAC/HS DM (Reported) Insulin Glargine,Hum.rec.anlog (Lantus Solostar) 100 UNIT/ML (3 ML) INSULN.PEN 80 UNIT SC QPM DM (Reported) Levothyroxine Sodium 125 MCG TABLET 1 TAB PO DAILY THYROID (Reported) Tiotropium [place] (Spiriva) 18 MCG CAP.W.DEV 18 MCG INH DAILY ASTHMA/COPD ( Reported) Review of Systems Review of Systems Constitutional: Reports: see HPI. Cardiovascular: Denies: chest pain. Respiratory: Reports: cough, short of breath. GI: Denies: abdominal pain. Hematologic/Endocrine: Denies: polyuria, polydipsia. 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 Ambulation: independent Exam & Diagnostic Data Last 24 Hrs of Vital Signs/I&O Vital Signs Date Time Temp Pulse Resp B/P B/P Pulse O2 O2 Flow FiO2 Mean Ox Delivery Rate 02/22 0800 96 Room Air 02/22 0654 98.4 76 18 122/68 96 Room Air 02/22 0224 Room Air 02/22 0201 98.0 80 20 134/68 95 Room Air 02/22 0142 98.3 82 20 143/87 92 Room Air 02/22 0010 98.9 91 18 162/77 93 Room Air 02/21 2154 98.0 84 20 140/70 95 Room Air 02/21 2048 93 02/21 1916 100.3 117 18 153/75 94 Room Air Intake & Output 02/22 1600 02/22 0800 02/22 0000 Intake Total Output Total Balance Patient 148 lb 148 lb Weight Weight Reported by Patient Reported by Patient Measurement Method Physical Exam General Appearance: no apparent distress Neck: s/p thyroidectomy Respiratory: crackles, rhonchi Cardiovascular: regular rate/rhythm Gastrointestinal: soft, non-tender Extremities: no edema Labs/Fernando Results: Laboratory Tests 02/22 02/21 0852 2219 Chemistry Sodium (137 - 145 mmol/L) 138 Potassium (3.5 - 5.1 mmol/L) 4.6 Chloride (98 - 107 mmol/L) 101 Carbon Dioxide (22 - 30 mmol/L) 28 Anion Gap (5 - 16) 9 BUN (7 - 17 mg/dL) 17 Creatinine (0.5 - 1.0 mg/dL) 0.5 Estimated GFR (>60 ml/min) > 60 BUN/Creatinine Ratio (7 - 25 %) 34.0 H Lactic Acid Cancelled TSH &T3 &Free T4 Intrp (0.270 - 4.20 uIU/mL) 3.810 Hematology CBC w Diff NO MAN DIFF REQ WBC (4.8 - 10.8 /CUMM) 15.9 H RBC (4.20 - 5.40 /CUMM) 4.71 Hgb (12.0 - 16.0 G/DL) 14.3 Hct (37 - 47 %) 42.6 MCV (81.0 - 99.0 FL) 90.5 MCH (27.0 - 31.0 PG) 30.3 MCHC (33.0 - 37.0 G/DL) 33.5 RDW (11.5 - 14.5 %) 13.1 Plt Count (130 - 400 /CUMM) 283 MPV (7.4 - 10.4 FL) 9.4 Gran % (42.2 - 75.2 %) 92.2 H Lymphocytes % (20.5 - 51.1 %) 6.8 L Monocytes % (1.7 - 9.3 %) 1.0 L Eosinophils % (0 - 5 %) 0 Basophils % (0.0 - 2.0 %) 0 Absolute Granulocytes (1.4 - 6.5 /CUMM) 14.7 H Absolute Lymphocytes (1.2 - 3.4 /CUMM) 1.1 L Absolute Monocytes (0.10 - 0.60 /CUMM) 0.2 Absolute Eosinophils (0.0 - 0.7 /CUMM) 0 Absolute Basophils (0.0 - 0.2 /CUMM) 0 02/21 02/21 1950 1950 Chemistry Sodium (137 - 145 mmol/L) 133 L Potassium (3.5 - 5.1 mmol/L) 4.4 Chloride (98 - 107 mmol/L) 97 L Carbon Dioxide (22 - 30 mmol/L) 28 Anion Gap (5 - 16) 8 BUN (7 - 17 mg/dL) 11 Creatinine (0.5 - 1.0 mg/dL) 0.6 Estimated GFR (>60 ml/min) > 60 BUN/Creatinine Ratio (7 - 25 %) 18.3 Glucose (65 - 99 mg/dL) 423 H Lactic Acid (0.7 - 2.1 mmol/L) 1.9 Calcium (8.4 - 10.2 mg/dL) 9.1 Total Bilirubin (0.2 - 1.3 mg/dL) 0.2 AST (14 - 36 U/L) 19 ALT (9 - 52 U/L) 23 Alkaline Phosphatase (<127 U/L) 114 Troponin I (< 0.11 ng/ml) < 0.01 Total Protein (6.3 - 8.2 g/dL) 6.0 L Albumin (3.5 - 5.0 g/dL) 3.0 L Globulin (1.9 - 4.2 gm/dL) 3.0 Albumin/Globulin Ratio (1.1 - 2.2 %) 1.0 L Coagulation D-Dimer High Sensitivty (0 - 243 ng/ml) 225 Hematology CBC w Diff MAN DIFF ORDERED WBC (4.8 - 10.8 /CUMM) 16.6 H RBC (4.20 - 5.40 /CUMM) 4.75 Hgb (12.0 - 16.0 G/DL) 14.3 Hct (37 - 47 %) 42.7 MCV (81.0 - 99.0 FL) 90.0 MCH (27.0 - 31.0 PG) 30.2 MCHC (33.0 - 37.0 G/DL) 33.6 RDW (11.5 - 14.5 %) 13.3 Plt Count (130 - 400 /CUMM) 320 MPV (7.4 - 10.4 FL) 9.2 Gran % (42.2 - 75.2 %) 77.8 H Lymphocytes % (20.5 - 51.1 %) 16.2 L Monocytes % (1.7 - 9.3 %) 3.9 Eosinophils % (0 - 5 %) 1.9 Basophils % (0.0 - 2.0 %) 0.2 Absolute Granulocytes (1.4 - 6.5 /CUMM) 12.9 H Segmented Neutrophils (42.2 - 75.2 %) 81 H Absolute Lymphocytes (1.2 - 3.4 /CUMM) 2.7 Lymphocytes (20.5 - 51.1 %) 10 L Monocytes (1.7 - 9.3 %) 5 Absolute Monocytes (0.10 - 0.60 /CUMM) 0.6 Eosinophils (0 - 5.0 %) 3 Absolute Eosinophils (0.0 - 0.7 /CUMM) 0.3 Basophils (0.0 - 2.0 %) 1 Absolute Basophils (0.0 - 0.2 /CUMM) 0 Platelet Estimate (ADEQUATE) VERIFIED BY SMEAR Normocytic RBCs VERIFIED Normochromic RBCs VERIFIED Other Body Source Fld Total RBCs Counted (%) 100 Assessment/Plan Assessment/Plan 52-year-old female with past medical history significant for hypertension, COPD, hyperlipidemia, hemorrhoids, asthma, diabetes type 2, goiter s/p thyroidectomy and hypothyroidism, who was admitted for worsening cough, fever and chest tightness. At home, she was on Lantus 40 units twice a day, Novolog coverage before meals. She received Solumedrol 125 mg in ER. Her glucose level has been over 400. Plan: 1. Levemir 15 units x1 2. increase Levemir to 40 units twice a day; 3. adjust Novolog coverage before meals and add Novolog coverage at bedtime; detail see the inpatient DM orders; 4. monitor FSGs 5. Lyrica 150 mg twice a day for neuropathy; will follow. Inpatient Diabetes Orders Before Each Meal: Bolus Insulin: Novolog < 80 mg/dl: no coverage 80-100 mg/dl: 12 units 101-120 mg/dl: 12 units 121-150 mg/dl: 12 units 151-200 mg/dl: 14 units 201-250 mg/dl: 16 units 251-300 mg/dl: 18 units 301-350 mg/dl: 20 units 351-400 mg/dl: 22 units > 400 mg/dl: 24 units Bedtime: Bolus Insulin: Novolog < 80 mg/dl: no coverage 80-100 mg/dl: no coverage 101-120 mg/dl: no coverage 121-150 mg/dl: no coverage 151-200 mg/dl: no coverage 201-250 mg/dl: no coverage 251-300 mg/dl: 2 units 301-350 mg/dl: 4 units 351-400 mg/dl: 6 units > 400 mg/dl: 8 units Consult Acknowledgment - Thank you for your consult request.
[2018-02-22 14:51] VITALS: BP 141/69
[2018-02-22 21:45] VITALS: BP 143/71
[2018-02-23 06:53] VITALS: BP 124/68
--- NOTE | 2018-02-23 09:59 | PN- Housestaff ---
Assessment/Plan Consulting Request: Consulting Specialty: Endocrinology
--- NOTE | 2018-02-23 10:48 | PN- Diabetes ---
Assessment/Plan Diabetes Assessment: 52-year-old female with past medical history significant for hypertension, COPD, hyperlipidemia, hemorrhoids, asthma, diabetes type 2, goiter s/p thyroidectomy and hypothyroidism, who was admitted for worsening cough, fever and chest tightness. At home, she was on Lantus 40 units twice a day, Novolog coverage before meals. She received Solumedrol 125 mg in ER. Her glucose levels were over 400. She was put on Levemir 40 units twice a day, Novolog coverage before meals and add Novolog coverage at bedtime. In addition, she was put on Lyrica 150 mg twice a day for neuropathy; Before Each Meal: Bolus Insulin: Novolog < 80 mg/dl: no coverage 80-100 mg/dl: 12 units 101-120 mg/dl: 12 units 121-150 mg/dl: 12 units 151-200 mg/dl: 14 units 201-250 mg/dl: 16 units 251-300 mg/dl: 18 units 301-350 mg/dl: 20 units 351-400 mg/dl: 22 units > 400 mg/dl: 24 units Bedtime: Bolus Insulin: Novolog < 80 mg/dl: no coverage 80-100 mg/dl: no coverage 101-120 mg/dl: no coverage 121-150 mg/dl: no coverage 151-200 mg/dl: no coverage 201-250 mg/dl: no coverage 251-300 mg/dl: 2 units 301-350 mg/dl: 4 units 351-400 mg/dl: 6 units > 400 mg/dl: 8 units Her FSGs were 309, 278, 63 and 99. Plan: 1. decrease Levemir to 30 units twice a day; 2. continue the current Novolog coverage before meals and Novolog coverage at bedtime; 3. monitor FSGs. will follow. Subjective Subjective: Her glucose level was down to 63 this morning. Objective Last 24 Hrs of Vital Signs/I&O Vital Signs Date Time Temp Pulse Resp B/P B/P Pulse O2 O2 Flow FiO2 Mean Ox Delivery Rate 02/23 0913 93 Room Air 02/23 0800 Room Air 02/23 0653 97.9 76 16 124/68 94 Room Air 02/22 2145 98.3 88 18 143/71 93 02/22 1830 95 Room Air 02/22 1451 97.5 78 20 141/69 92 02/22 1430 Room Air Intake & Output 02/23 1600 02/23 0800 02/23 0000 Intake Total 200 600 Output Total Balance 200 600 Intake, IV 300 Intake, Oral 200 300
--- NOTE | 2018-02-23 12:23 | PN- Gen Med ---
Assessment/Plan Medical Assessment: Impression 52 year old woman * LLL CAP * hx of asthma - treated by Dr. Peralta in [place] * hyperglycemia/DM * hypothyroidism Problem List: 1. Diabetes 2. Hyperglycemia 3. Asthma Plan: Plan -ceftriaxone/zithromax -f/u all cultures/sputum -endocrinology consultation appreciated -no need for prednisone at this time, just completed course -TRC/Nebs - Duonebs -can resume inhalers on an outpatient basis DVT prophylaxis at all times DC planning Consulting Request: Consulting Specialty: Endocrinology Subjective Follow-up For: CAP Complaints: pain scale (0-10) (improved dyspnea) Review of Systems Constitutional: Denies: chills, diaphoresis, fever. Comments: Constitutional: Reports: weakness. Denies: chills, diaphoresis, fever. EENTM: Denies: blurred vision, double vision, visual changes, eye pain. Cardiovascular: Denies: chest pain, edema, orthopena, palpitations, peripheral edema, syncope. Respiratory: Reports: cough, short of breath, sputum production. Gastrointestinal: Denies: abdominal pain, bloating, constipation, diarrhea, nausea. Genitourinary: Denies: dysuria. Musculoskeletal: Denies: back pain, muscle pain. Skin: Denies: rash. Neurological/Psychological: Denies: no symptoms. Objective Last 24 Hrs of Vital Signs/I&O Vital Signs Date Time Temp Pulse Resp B/P B/P Pulse O2 O2 Flow FiO2 Mean Ox Delivery Rate 02/23 0913 93 Room Air 02/23 0800 Room Air 02/23 0653 97.9 76 16 124/68 94 Room Air 02/22 2145 98.3 88 18 143/71 93 02/22 1830 95 Room Air 02/22 1451 97.5 78 20 141/69 92 02/22 1430 Room Air Intake & Output 02/23 1600 02/23 0800 02/23 0000 Intake Total 200 600 Output Total Balance 200 600 Intake, IV 300 Intake, Oral 200 300 Physical Exam General Appearance: Alert, Oriented X3 Other Physical Findings: Skin: No Rashes HEENT: EOMI, Mucous Membr. moist/pink Neck: Supple Cardiovascular: Regular Rate Lungs: b/l rhonchi Abdomen: Normal Bowel Sounds, Soft Neurological: Normal Speech Extremities: No Cyanosis, No Edema Current Medications: Current Medications Sig/Mikki Start time Last Medication Dose Route Stop Time Status Admin Acetaminophen 650 MG Q6P PRN 02/22 0400 AC PO Acetaminophen 1,000 MG Q6P PRN 02/22 0400 AC IV Albuterol Sulfate 3 ML EVERY 4 HRS/AWAKE 02/22 1600 AC 02/23 INH 1155 Azithromycin 500 MG 2100 02/22 2100 AC 02/22 Sodium Chloride 250 ML IV 2025 Ceftriaxone Sodium 1,000 MG 2100 02/22 2100 AC 02/22 IV 2026 Guaifenesin 600 MG Q12 02/22 2100 AC 02/23 PO 0825 Insulin Aspart 0 TIDAC/HS 02/22 1700 AC 02/23 SC 1205 Insulin Aspart 0 TIDAC 02/22 1200 DC 02/22 SC 1219 Insulin Detemir 30 UNITS BID 02/23 2100 AC SC Insulin Detemir 30 UNITS BID 02/22 2100 DC SC Insulin Detemir 40 UNITS BID 02/22 2100 DC 02/23 SC 0825 Insulin Detemir 15 UNITS ONE TIME ONE 02/22 1345 DC 02/22 SC 02/22 1346 1538 Levothyroxine Sodium 0.137 MG 0700 02/23 0700 AC 02/23 PO 0544 Morphine Sulfate 2 MG Q4P PRN 02/22 0400 AC IV Multivitamins 1 TAB DAILY 02/22 1630 AC 02/23 PO 0825 Pregabalin 150 MG BID 02/22 2100 AC 02/23 PO 0825 Pregabalin 100 MG .STK-MED ONE 02/22 1857 DC PO 02/22 1858 Pregabalin 50 MG .STK-MED ONE 02/22 1857 DC PO 02/22 1858 Last 24 Hrs of Labs/Mics: Microbiology 02/22 2013 URINE ROUT: Legionella Antigen - COMP 02/22 2013 URINE ROUT: Streptococcus pneumoniae Antigen (M - COMP
[2018-02-23 13:57] VITALS: BP 130/66
[2018-02-23 21:58] VITALS: BP 155/67
[2018-02-24 06:36] VITALS: BP 130/60
--- NOTE | 2018-02-24 07:23 | PN- Housestaff ---
See Addendum Subjective Follow-up For: CAP Hyperglycemia Subjective: No complaints or acute events overnight Review of Systems Constitutional: Reports: see HPI. Objective Last 24 Hrs of Vital Signs/I&O Vital Signs Date Time Temp Pulse Resp B/P B/P Pulse O2 O2 Flow FiO2 Mean Ox Delivery Rate 02/24 0812 97 Room Air Room Air 02/24 0636 97.8 68 16 130/60 96 Room Air 02/24 0000 Room Air 02/23 2158 98.4 96 18 155/67 96 02/23 1600 Room Air Room Air 02/23 1600 93 Room Air 02/23 1357 98.7 87 20 130/66 93 Room Air Intake & Output 02/24 1600 02/24 0800 02/24 0000 Intake Total 360 875 Output Total Balance 360 875 Intake, IV 275 Intake, Oral 360 600 Physical Exam General Appearance: Alert, Oriented X3, Cooperative, No Acute Distress Cardiovascular: Regular Rate, Normal S1, Normal S2 Lungs: Clear to Auscultation, Normal Air Movement Abdomen: Normal Bowel Sounds, Soft, No Tenderness Extremities: No Edema Current Medications: Current Medications Sig/Mikki Start time Last Medication Dose Route Stop Time Status Admin Acetaminophen 650 MG Q6P PRN 02/22 0400 AC 02/24 PO 0610 Acetaminophen 1,000 MG Q6P PRN 02/22 0400 IV Albuterol Sulfate 3 ML EVERY 4 HRS/AWAKE 02/22 1600 AC 02/24 INH 0810 Azithromycin 500 MG 2100 02/22 2100 AC 02/23 Sodium Chloride 250 ML IV 2006 Ceftriaxone Sodium 1,000 MG 2100 02/22 2100 AC 02/23 IV 2006 Guaifenesin 600 MG Q12 02/22 2100 AC 02/24 PO 0751 Insulin Aspart 0 TIDAC/HS 02/22 1700 AC 02/24 SC 0751 Insulin Detemir 34 UNITS BID 02/24 2100 AC SC Insulin Detemir 30 UNITS BID 02/23 2100 DC 02/24 SC 0755 Insulin Detemir 40 UNITS BID 02/22 2100 DC 02/23 SC 0825 Levothyroxine Sodium 0.137 MG 0702/23 0700 AC 02/24 PO 0607 Morphine Sulfate 2 MG Q4P PRN 02/22 0400 AC IV Multivitamins 1 TAB DAILY 02/22 1630 AC 02/24 PO 0752 Pregabalin 150 MG BID 02/22 2100 AC 02/24 PO 0754 Last 24 Hrs of Lab/Fernando Results Last 24 Hrs of Labs/Mics: Laboratory Tests 02/24/18 0926: CBC w Diff NO MAN DIFF REQ, RBC 4.51, MCV 90.4, MCH 30.2, MCHC 33.4, RDW 13.1, MPV 9.4, Gran % 62.9, Lymphocytes % 29.6, Monocytes % 4.4, Eosinophils % 2.3, Basophils % 0.8, Absolute Granulocytes 5.6, Absolute Lymphocytes 2.6, Absolute Monocytes 0.4, Absolute Eosinophils 0.2, Absolute Basophils 0.1 Assessment/Plan Assessment: 52-year-old female past medical history significant for COPD, hypertension, hyperlipidemia, hemorrhoids, asthma, thyroidectomy, diabetes, who comes in for chief complaint of productive cough, fever and chest tightness. #CAP #Hyperglycemia Plan: TRC/nebs PRN IV Ceftriaxone and Azithromycin Accu-chek and Novolog SS Resp/Blood cultures no growth so far Urine strep/legionella negative Diet: Diabetic DVT ppx: ALPS Code: Full Problem List: 1. Uncontrolled diabetes mellitus 2. Pneumonia Pain Ratin Pain Location: NA Pain Goal: Remain pain free Pain Plan: NA Tomorrow's Labs & Rationales: none Consulting Request: Consulting Specialty: Endocrinology
[2018-02-24 10:02] LABS: ABSOLUTE BASOPHIL COUNT 0.1 /CUMM (0.0-0.2); ABSOLUTE EOSINOPHIL COUNT 0.2 /CUMM (0.0-0.7); ABSOLUTE GRANULOCYTE CT 5.6 /CUMM (1.4-6.5); ABSOLUTE LYMPH COUNT 2.6 /CUMM (1.2-3.4); ABSOLUTE MONOCYTE COUNT 0.4 /CUMM (0.10-0.60); BASOPHIL % 0.8 % (0.0-2.0); EOSINOPHIL % 2.3 % (0-5); GRANULOCYTE % 62.9 % (42.2-75.2); HEMATOCRIT 40.8 % (37-47); MEAN CORPUSCULAR HGB 30.2 PG (27.0-31.0); MEAN CORPUSCULAR HGB CONC 33.4 G/DL (33.0-37.0); MEAN CORPUSCULAR VOLUME 90.4 FL (81.0-99.0); MEAN PLATELET VOLUME 9.4 FL (7.4-10.4); PLATELET COUNT 312 /CUMM (130-400); RBC DISTRIBUTION WIDTH 13.1 % (11.5-14.5); RED BLOOD CELL CT 4.51 /CUMM (4.20-5.40); WHITE BLOOD CELL COUNT 8.9 /CUMM (4.8-10.8)
[2018-02-24] MEDS ORDERED: ONE DAILY MULT1 EAC2 PO ×2 (10:07→11:37)
[2018-02-24] MEDS ORDERED: NOVOLOG100 UNIT/2 SC ×2 (10:07→11:37)
[2018-02-24] MEDS ORDERED: LEVEMIR100 UNIT/1 SC ×2 (10:07→11:37)
[2018-02-24] MEDS ORDERED: AUGMENTIN 875-1 EACH PO (10:07)
[2018-02-24] MEDS ORDERED: GUAIFENESIN ER600 MG PO ×2 (10:07→11:37)
--- NOTE | 2018-02-24 10:10 | Patient Discharge Instructions ---
Discharge Instructions General Discharge Information You were seen/treated for: Pneumonia High blood sugar Special Instructions: Follow up with your PCP within 1-2 weeks of discharge Follow up with your Timber Poisoner-Dr. Corona within 1 week of discharge Your insulin regimen has been changed. Please follow new regimen as directed Complete your antibiotics Diet Recommended Diet: Diabetic Activity Full Activity/No Limits: Yes Acute Coronary Syndrome Inclusion Criteria At DC or during hospital stay patient has or had the following: ACS DIAGNOSIS No Discharge Core Measures Meds if any: Prescribed or Continued at Discharge Meds if any: NOT Prescribed or Continued at Discharge Congestive Heart Failure Inclusion Criteria At DC or during hospital stay patient has or had the following: CHF DIAGNOSIS No Discharge Core Measures Meds if any: Prescribed or Continued at Discharge Meds if any: NOT Prescribed or Continued at Discharge Cerebrovascular accident Inclusion Criteria At DC or during hospital stay patient has or had the following: CVA/TIA Diagnosis No Discharge Core Measures Meds if any: Prescribed or Continued at Discharge Meds if any: NOT Prescribed or Continued at Discharge Venous thromboembolism Inclusion Criteria VTE Diagnosis No VTE Type NONE VTE Confirmed by (Test) NONE Discharge Core Measures - Per Current guidelines, there needs to be overlap - treatment for the first 5 days of Warfarin therapy. - If discharged on Warfarin prior to 5 days of - overlap therapy, the patient will need to be - assessed for post discharge needs including - *Post discharge parental anticoagulation - *Warfarin and/or parental anticoagulation education - *Follow up date to check INR post discharge At least 5 days overlap therapy as Inpatient No Meds if any: Prescribed or Continued at Discharge Note: Overlap Therapy is Warfarin and Anticoagulant Meds if any: NOT Prescribed or Continued at Discharge
[2018-02-24] MEDS ORDERED: LYRICA75 M1 PO (10:12)
[2018-02-24] MEDS ORDERED: DIAZEPAM5 M1 PO (10:12)
--- NOTE | 2018-02-24 11:00 | PN- Pulmonary ---
Subjective HPI/Critical Care Issues: pt seen and examined feeling significantly better abnormal lung sounds are resolving Objective Current Medications: Current Medications Sig/Mikki Start time Last Medication Dose Route Stop Time Status Admin Acetaminophen 650 MG Q6P PRN 02/22 0400 AC 02/24 PO 0610 Acetaminophen 1,000 MG Q6P PRN 02/22 0400 IV Albuterol Sulfate 3 ML EVERY 4 HRS/AWAKE 02/22 1600 AC 02/24 INH 0810 Azithromycin 500 MG 02/22 AC 02/23 Sodium Chloride 250 ML IV 2005 Ceftriaxone Sodium 1,000 MG 02/22 AC 02/23 IV 2006 Guaifenesin 600 MG Q12 02/22 2100 AC 02/24 PO 0751 Insulin Aspart 0 TIDAC/HS 02/22 1700 AC 02/24 SC 0751 Insulin Detemir 34 UNITS BID 02/24 2100 AC SC Insulin Detemir 30 UNITS BID 02/23 2100 DC 02/24 SC 0755 Levothyroxine Sodium 0.137 MG 0700 02/23 0700 AC 02/24 PO 0607 Morphine Sulfate 2 MG Q4P PRN 02/22 0400 IV Multivitamins 1 TAB DAILY 02/22 1630 AC 02/24 PO 0752 Pregabalin 150 MG BID 02/22 2100 AC 02/24 PO 0754 Vital Signs & I&O Last 24 Hrs of Vitals and I&O: Vital Signs Date Time Temp Pulse Resp B/P B/P Pulse O2 O2 Flow FiO2 Mean Ox Delivery Rate 02/24 0812 97 Room Air Room Air 02/24 0636 97.8 68 16 130/60 96 Room Air 02/24 0000 Room Air 02/23 2158 98.4 96 18 155/67 96 02/23 1600 Room Air Room Air 02/23 1600 93 Room Air 02/23 1357 98.7 87 20 130/66 93 Room Air Intake & Output 02/24 1600 02/24 0800 02/24 0000 Intake Total 360 875 Output Total Balance 360 875 Intake, IV 275 Intake, Oral 360 600 Exam Other Physical Findings: gen-aaox3 heent-ncat cvs-s1,s2 lungs-remarkable improvement in b/l rhonchi abd-soft,bs+ ext-no edema Results Last 24 Hrs of Lab Results: Laboratory Tests 02/24/18 0926: CBC w Diff NO MAN DIFF REQ, RBC 4.51, MCV 90.4, MCH 30.2, MCHC 33.4, RDW 13.1, MPV 9.4, Gran % 62.9, Lymphocytes % 29.6, Monocytes % 4.4, Eosinophils % 2.3, Basophils % 0.8, Absolute Granulocytes 5.6, Absolute Lymphocytes 2.6, Absolute Monocytes 0.4, Absolute Eosinophils 0.2, Absolute Basophils 0.1 Impression/Plan Impression/Plan Impression/Plan: Impression 52 year old woman * LLL CAP * hx of asthma - treated by Dr. Peralta in [place] * hyperglycemia/DM * hypothyroidism Plan -change to PO abx -f/u all cultures/sputum -endocrinology consultation appreciated -no need for prednisone at this time, just completed course -TRC/[place] - [place] -can resume inhalers on an outpatient basis DVT prophylaxis at all times DC planning - okay for today
[2018-02-24] MEDS ORDERED: CEFUROXIME500 MG PO (11:38)
--- NOTE | 2018-02-24 12:46 | Discharge Summary ---
Visit Information Visit Dates Admission Date: 02/21/18 Discharge Date: 02/24/18 Hospital Course Course Attending Physician: Oswaldo Logan MD Primary Care Physician: Tara STUBBS,Kyle De Anda Consulting Request: Consulting Specialty: Endocrinology Hospital Course: 52-year-old female past medical history significant for COPD, hypertension, hyperlipidemia, hemorrhoids, asthma, thyroidectomy, diabetes, who comes in for chief complaint of productive cough, fever and chest tightness. #CAP She was given TRC/nebs PRN as needed for her underlying COPD. She was administered IV Ceftriaxone and Azithromycin and subsequently transitioned to Ceftin and Azithromycin orally given her penicillin allergy upon discharge. Her Respiratory and Blood cultures had no growth so far. Her Urine strep and legionella were negative #Uncontrolled Diabetes Endocrinology was consulted. We performed Accu-chek and administered Novolog SS. Her insulin regimen was changed as per Endo. She was discharge home on her new regimen #Chronic medical conditions She was resumed on her home medications. She reported leg muscle spasms that resolved with Diazepam. She was sent home with a week supply. Inpatient she was also given Lyrica which did not seem to resolve her leg pain and it was discontinued upon discharge Allergies: Coded Allergies: moxifloxacin (Severe, HIVES, ITCHING, VOMITING, SOB 11/28/15) amoxicillin (Intermediate, RASH/HIVES 11/28/15) hydromorphone (From DILAUDID) (Intermediate, swelling, rash 07/26/17) tetanus and diphtheria toxoids (TETANUS & DIPHTHERIA TOXOIDS) (Intermediate, SWELLING, REDNESS AT SITE 11/28/15) Pertinent Lab Results: 02/21/18 EXAM TYPE: RAD - XRY-CHEST XRAY, TWO VIEWS FINDINGS: There is a focal linear opacity in the left lower lobe Lungs otherwise clear. Cardiac silhouette mediastinum pulmonary vascularity normal. Postsurgical changes in lower cervical spine IMPRESSION: Opacity in the left lower lobe. This could reflect atelectasis or evolving infiltrate\pneumonia. 02/21/18 EXAM TYPE: RAD - XRY-FOOT COMPLETE, LEFT FINDINGS: There is a moderate plantar calcaneal spur. There is a small posterior calcaneal spur. I do not see a fracture IMPRESSION: No fracture or acute abnormality Disposition Summary Disposition Principal Diagnosis: CAP Uncontrolled Diabetes Additional Diagnosis: as above Discharge Disposition: home or self care Discharge Instructions General Discharge Information Code Status: Full Code Patient's Diet: Diabetic Patient's Activity: Full Follow-Up Instructions/Appts: Follow up with your PCP within 1-2 weeks of discharge Follow up with your [employer] Repairer Machine-Dr. Corona within 1 week of discharge Your insulin regimen has been changed. Please follow new regimen as directed Complete your antibiotics Medications at Discharge Discharge Medications: Stop taking the following medications: Insulin Glargine,Hum.rec.anlog (Lantus Solostar) 100 UNIT/ML (3 ML) INSULN.PEN Inject into fatty tissue Every night Insulin Aspart (Novolog) (Unknown Strength) VIAL Inject into fatty tissue BEFORE MEALS AND AT BEDTIME Continue taking these medications: Tiotropium Vil[place] (Spiriva) 18 MCG CAP.W.DEV 18 Microgram Inhale through mouth DAILY Comments: Last Taken: 07/27/17 Time: 9:30 AM Levothyroxine Sodium (Levothyroxine Sodium) 125 MCG TABLET 1 Tablet ORAL DAILY Comments: Last Taken:02/24/18 Time:6AM Start taking the following new medications: Guaifenesin (Guaifenesin ER) 600 MG TAB.ER.12H 600 Milligram ORAL EVERY 12 HOURS Qty = 14 No Refills Instructions: . Comments: Last Taken:02/24/18 Time:9AM Insulin Aspart (Novolog) 100 UNIT/ML VIAL 0 Units Inject into fatty tissue BEFORE MEALS AND AT BEDTIME Qty = 30 No Refills Instructions: sugar<80 initiate hypoglycemia.80-150 take 12u. 151-200 take 14u. 201-250 take 16u. 251-300 take 18u. 301-350 take 20u. 351-400 take 22u >400 take 24u Comments: Last Taken:02/24/18 Time:1130 Insulin Detemir (Levemir) 100 UNIT/ML VIAL 34 Units Inject into fatty tissue TWICE DAILY Qty = 30 No Refills Instructions: . Comments: Last Taken:02/24/18 Time:9AM Multivitamin (One Daily Multivitamin) 1 EACH TABLET 1 Tablet ORAL DAILY Qty = 30 No Refills Instructions: . Comments: Last Taken:02/24/18 Time:9AM Diazepam (Diazepam) 5 MG TABLET 1 Tablet ORAL DAILY Qty = 7 No Refills Cefuroxime Axetil (Cefuroxime) 500 MG TABLET 1 Tablet ORAL TWICE DAILY Qty = 10 No Refills Copies To: Tara STUBBS,Kyle De Anda; Cj STUBBS,Sveta; Ricardo STUBBS,Tapan
--- NOTE | 2018-02-24 12:56 | PN- Diabetes ---
Assessment/Plan Diabetes Assessment: 52-year-old female with past medical history significant for hypertension, COPD, hyperlipidemia, hemorrhoids, asthma, diabetes type 2, goiter s/p thyroidectomy and hypothyroidism, who was admitted for worsening cough, fever and chest tightness. At home, she was on Lantus 40 units twice a day, Novolog coverage before meals. She received Solumedrol 125 mg in ER. Her glucose levels were over 400. She was put on Levemir 40 units twice a day initially. In addition, she is on Novolog coverage before meals and add Novolog coverage at bedtime. She was put on Lyrica 150 mg twice a day as well for neuropathy. Her glucose level was 63 in the morning on 02/23/2018; Levemir was decreased to 30 units twice a day and Novolog coverage before meals was adjusted. Her FSGs were 99, 244, 313, 238 and 228. Plan: 1. increase Levemir to 34 units twice a day; 2. continue the current Novolog coverage before meals; 3. continue the current Novolog coverage at bedtime; 4. monitor FSGs. will follow. Subjective Subjective: She feels better. Objective Last 24 Hrs of Vital Signs/I&O Vital Signs Date Time Temp Pulse Resp B/P B/P Pulse O2 O2 Flow FiO2 Mean Ox Delivery Rate 02/24 0812 97 Room Air Room Air 02/24 0636 97.8 68 16 130/60 96 Room Air 02/24 0000 Room Air 02/23 2158 98.4 96 18 155/67 96 02/23 1600 Room Air Room Air 02/23 1600 93 Room Air 02/23 1357 98.7 87 20 130/66 93 Room Air Intake & Output 02/24 1600 02/24 0800 02/24 0000 Intake Total 360 875 Output Total Balance 360 875 Intake, IV 275 Intake, Oral 360 600 Findings Pertinent Lab/Fernando Results: Laboratory Tests 02/24 09 Hematology CBC w Diff NO MAN DIFF REQ WBC (4.8 - 10.8 /CUMM) 8.9 RBC (4.20 - 5.40 /CUMM) 4.51 Hgb (12.0 - 16.0 G/DL) 13.6 Hct (37 - 47 %) 40.8 MCV (81.0 - 99.0 FL) 90.4 MCH (27.0 - 31.0 PG) 30.2 MCHC (33.0 - 37.0 G/DL) 33.4 RDW (11.5 - 14.5 %) 13.1 Plt Count (130 - 400 /CUMM) 312 MPV (7.4 - 10.4 FL) 9.4 Gran % (42.2 - 75.2 %) 62.9 Lymphocytes % (20.5 - 51.1 %) 29.6 Monocytes % (1.7 - 9.3 %) 4.4 Eosinophils % (0 - 5 %) 2.3 Basophils % (0.0 - 2.0 %) 0.8 Absolute Granulocytes (1.4 - 6.5 /CUMM) 5.6 Absolute Lymphocytes (1.2 - 3.4 /CUMM) 2.6 Absolute Monocytes (0.10 - 0.60 /CUMM) 0.4 Absolute Eosinophils (0.0 - 0.7 /CUMM) 0.2 Absolute Basophils (0.0 - 0.2 /CUMM) 0.1
== END 2018-02-24 11:50 | DRG 139 ==
LOC: ERH 19:05 → ERHI 23:50 → 2NA 23:50 → CANRESERV 02-22 00:52 → ENRESERV 02-22 01:00 → 2NA 02-22 01:47
PROVIDERS: Physician Assistant; Student in an Organized Health Care Education/Training Program
DX: J18.1 Lobar pneumonia, unspecified organism (principal); E11.40 Type 2 diabetes mellitus with diabetic neuropathy, unspecified; E11.65 Type 2 diabetes mellitus with hyperglycemia; Z79.4 Long term (current) use of insulin; I10 Essential (primary) hypertension; J44.9 Chronic obstructive pulmonary disease, unspecified; Z88.1 Allergy status to other antibiotic agents; Z88.5 Allergy status to narcotic agent; Z88.8 Allergy status to other drugs, medicaments and biological substances; Z90.710 Acquired absence of both cervix and uterus; E89.0 Postprocedural hypothyroidism
CPT/HCPCS: 2NASP; ERO; 36592; 71046; 73630-LT; 82436; 87040; 87070; 87449; 87450; 93005; 93010; 96361; 96374; 96375; J0131; J0456; J0696; J2930; J3360; J7040